=== PATIENT | female | born 1995 | race Caucasian/White ===

== ENCOUNTER → 2020-06-01 13:47 | Outpatient (CLI) | payer OTHER, MEDICAID, SELFPAY ==
--- NOTE | ~2020-06-01 | US_ITS ---
EXAMINATION: US OB <=14 wk fetus w TV DATE: 06/01/2020 14:37 INDICATION: Irregular cycles with suppression of menstruation. TECHNIQUE: Real-time pelvic ultrasound utilizing both a transvaginal and transabdominal probe was pe rformed. The interpreting radiologist was not present for the study. COMPARISON: None. FINDINGS: The uterus measures 11.1 x 6.8 x 9.0 cm. There is an intrauterine gestational sac. A yolk sac and fe nithya pole are identified. The crown rump length measures 3.2 cm, which correlates with an estimated ge stational age of 10 weeks and 1 days. heart motion is identified measuring 172 beats per minute (bpm) by M-mode Doppler. 1.3 x 0.7 x 1.0 cm anechoic subchorionic hematoma along the right side of t he gestational sac. The right ovary measures 4.0 x 2.7 x 3.1 cm. The left ovary are not visualized There is no free fluid in the pelvis. IMPRESSION: 1. Single living fetus with heart rate of 172 bpm. 2. Gestational age by ultrasound of 10 weeks 1 day(s) +/- 6 day(s) with ultrasound estimated date of delivery (ALL) of 12/27/2020. Reviewed, dictated and finalized at location A. IMPRESSION: 1. Single living fetus with heart rate of 172 bpm. 2. Gestational age by ultrasound of 10 weeks 1 day(s) +/- 6 day(s) with ultras ound estimated date of delivery (ALL) of 12/27/2020.
== END ==
PROVIDERS: Visit Provider Obstetrics & Gynecology
DX: Z34.91 Encounter for supervision of normal pregnancy, unspecified, first trimester (principal); Z3A.10 10 weeks gestation of pregnancy
CPT/HCPCS: 76801; 76817

== ENCOUNTER 2020-06-17 12:30 | Emergency (ER) | payer OTHER, MEDICAID, SELFPAY ==
--- NOTE | ~2020-06-17 | US_ITS ---
EXAMINATION: US OB <= 14 weeks fetus DATE: 06/17/2020 14:32 INDICATION: Vaginal bleeding during 12 week of TECHNIQUE: Real-time pelvic ultrasound utilizing both a transvaginal and transabdominal probe was pe rformed. The interpreting radiologist was not present for the study. COMPARISON: None. FINDINGS: The uterus measures 12.4 x 9.9 x 8.6 cm. There is an intrauterine gestational sac. A yolk sac and fe nithya pole are identified. The crown rump length measures 5.8 cm, which is concordant with previously e stimated gestational age of 12 weeks and 1 days. heart motion is identified measuring 165 beats per minute (bpm) by M-mode Doppler. The bilateral ovaries are not visualized. There is no free fluid in the pelvis. IMPRESSION: 1. Single living fetus with heart rate of 165 bpm. 2. [place]-rump length of 5.8 cm which is concordant with previously estimated gestational age by ultra sound of 12 weeks 1 day with ultrasound estimated date of delivery (ALL) of 12/29/2020. Reviewed, dictated and finalized at location B. IMPRESSION: 1. Single living fetus with heart rate of 165 bpm. 2. [place]-rump length of 5.8 cm which is concordant with previously estimated ge stational age by ultrasound of 12 weeks 1 day with ultrasound estimated date of delivery (ALL) of 12/29/2020.
[2020-06-17 12:38] VITALS: BP 141/87; PULSE 86; RESP 20; TEMP 36.8; O2SAT 97
--- NOTE | 2020-06-17 12:44 | ED.FEMALEGU ---
HPI - Female Genitourinary General Chief complaint: Vaginal Bleeding Stated complaint: 12 weeks bleeding Time Seen by Provider: 06/17/20 12:34 Source: patient Mode of arrival: ambulatory Limitations: no limitations History of Present Illness HPI Narrative: This is a 24 year old , about 12 weeks that presents to the ER for vaginal bleeding this morning. Reports she had some cramping last night. Reports she noted some dark red blood this morning. Denies fever, abdominal pain, vomiting or dysuria. Related Data Allergies Allergy/AdvReac Type Severity Reaction Status Date / Time No Known Allergies Allergy Unverified 06/06/18 16:18 Review of Systems Review of Systems: Narrative: CONSTITUTIONAL: Denies fever GASTROINTESTINAL: Denies abdominal pain, nausea, vomiting GENITOURINARY: Denies dysuria All systems reviewed & are unremarkable except as noted in HPI and below PMFSH Surgical History Surgical History (Updated 06/17/20 @ 12:48 by Matilda Gao PA-C) History of tonsillectomy Family History Family History (Updated 01/22/18 @ 10:06 by DOCTOR UNKNOWN) Father Hypertension Family history of malignant neoplasm of urinary bladder Mother Family history of malignant melanoma Family history of malignant neoplasm of breast in first degree relative Social History Social History (Updated 06/17/20 @ 12:47 by Matilda Gao PA-C) Substance use: never Exam Narrative: Exam Narrative: GENERAL: Well-appearing, well-nourished, and in no acute distress. HEAD: Normocephalic, atraumatic. EYES: EOMI. CHEST: Clear to auscultation. No respiratory distress. No wheezes rales or rhonchi HEART: Regular rate and rhythm. No murmur heard. Normal peripheral pulses. ABDOMEN: Soft, nontender, nondistended, normal active bowel sounds. EXTREMITIES: Normal range of motion. No edema. SKIN: Warm, dry, no rash. NEURO: No focal deficits. Alert and oriented x3. PSYCH: Normal mood and affect PELVIC: Small amount of bright red blood in the vaginal vault. Normal appearing cervix Course Consultations Consultation #1: Spoke with Dr. Goodwin about patient and work-up. Patient is to be put on pelvic rest and to follow-up in clinic next week. Date: 06/17/20 Time: 15:28 Vital Signs Vital signs: Vital Signs Temperature 98.3 F 06/17/20 12:38 Pulse Rate 86 06/17/20 12:38 Respiratory Rate 20 06/17/20 12:38 Blood Pressure 141/87 H 06/17/20 12:38 Pulse Oximetry 97 06/17/20 12:38 Temperature 98.3 F 06/17/20 12:38 Pulse Rate 78 06/17/20 12:54 Respiratory Rate 20 06/17/20 12:38 Blood Pressure 112/72 06/17/20 12:54 Pulse Oximetry 97 06/17/20 12:38 MDM - Female Genitourinary MDM Narrative Medical decision making narrative: Patient presents to the emergency department for some cramping and vaginal bleeding, 12 weeks . Her vitals are stable. Hemoglobin is 12.8. Small amount of bright red blood in the vaginal vault on exam. Patient is O+. Ultrasound shows a single living fetus with heart rate of 165. Estimated gestational age 12 weeks and 1 day. No other abnormalities noted. Patient updated on case findings. Spoke with Dr. Goodwin about patient and work-up. Patient is to be put on pelvic rest and to follow-up in clinic next week. Patient is stable and felt appropriate for further outpatient evaluation. She was given warnings to return to the ER Lab Data Attestation: I reviewed the patient's lab results. Result diagrams: 06/17/20 12:49 Labs: Lab Results 06/17/20 06/17/20 06/17/20 Range/Units 12:49 12:49 12:49 WBC 8.6 (4.5-10.0) K/mm3 RBC 4.17 L (4.2-5.4) M/mm3 Hgb 12.8 (12.0-15.0) g/dL Hct 36.4 L (37.0-47.0) % MCV 87.3 (80-100) fl MCH 30.7 (26-34) pg MCHC 35.2 (32-36) g/dl RDW 13.2 (11.5-14.5) % Plt Count 335 (150-375) k/mm3 MPV 10.6 H (7.4-10.4) fl Immature Gran % (Auto) 0.4 (0-0.5) % Neut % (Auto) 68.9 (
[2020-06-17 12:52] VITALS: BP 110/75; PULSE 67
[2020-06-17 12:53] VITALS: BP 109/74; PULSE 79
[2020-06-17 12:54] VITALS: BP 112/72; PULSE 78
--- NOTE | 2020-06-17 12:59 | PC.NURSE ---
patient here with vaginal bleeding. approximately 12 weeks . see triage notes. Alert. no distress. assessments documented. SL inserted. labs drawn. urine collected. patient ready for pelvic exam.
[2020-06-17 13:05] LABS: Basophils Percent Auto 0.5 % (0.2-1.2); Eosinophils Percent Auto 0.5 % (0-4.4); Hematocrit 36.4 % (37.0-47.0); Hemoglobin 12.8 g/dL (12.0-15.0); Immature Granulocyte Absolute 0.03 K/mm3 (0.00-0.031); Immature Granulocyte Percent A 0.4 % (0-0.5); Lymphocytes Absolute Auto 2.13 K/mm3 (0.9-3.2); Lymphocytes Percent Auto 24.9 % (18.3-44.2); Mean Corpuscular HGB Conc 35.2 g/dl (32-36); Mean Corpuscular Hemoglobin 30.7 pg (26-34); Mean Corpuscular Volume 87.3 fl (80-100); Mean Platelet Volume 10.6 fl (7.4-10.4); Monocytes Absolute Auto 0.4 K/mm3 (0.1-0.6); Monocytes Percent Auto 4.8 % (2.6-8.5); Neutrophils Absolute Auto 5.9 K/mm3 (1.3-6.7); Neutrophils Percent Auto 68.9 % (45.5-73.1); Platelet Count Result 335 k/mm3 (150-375); Red Blood Count 4.17 M/mm3 (4.2-5.4); Red Cell Distribution Width 13.2 % (11.5-14.5); White Blood Count 8.6 K/mm3 (4.5-10.0)
--- NOTE | 2020-06-17 16:19 | PC.NURSE ---
this RN to bedside. discharge instructions reviewed with patient. SL removed intact and without difficulty. no redness or swelling at site. patient verbalizes understanding of discharge instructions. denies needs prior to DC. ambulated with steady gait to ED exit.
== END 2020-06-17 16:19 | disposition home or self-care (01) ==
PROVIDERS: Physician Assistant; Emergency Provider Emergency Medicine
DX: O20.9 Hemorrhage in early pregnancy, unspecified (principal); Z3A.12 12 weeks gestation of pregnancy
CPT/HCPCS: 36415; 76801; 84702; 85025; 85461; 99284

== ENCOUNTER 2020-08-13 09:41 | Outpatient (CLI) | payer OTHER, MEDICAID, SELFPAY ==
--- NOTE | ~2020-08-13 | US_ITS ---
EXAMINATION: US OB /maternal detail DATE: 08/13/2020 15:11 INDICATION: Second trimester anatomic survey, prior subchorionic hematoma. TECHNIQUE: Real-time ultrasound of the pelvis was performed. COMPARISON: 06/17/2020 FINDINGS: There is a single living fetus in variable presentation. The placenta is posterior/fundal. hear t rate is 157 beats per minute (bpm). cardiac activity and movement are noted. The amnio tic fluid index is subjectively normal. The following anatomy was identified as normal: 4 chamber heart 3 vessel cord cord insertion kidneys urinary bladder stomach spine diaphragm ventricles cisterna magna cerebellum The following biometric data were obtained: Biparietal diameter (BPD): 4.81 cm; head circumference (HC): 7.1 cm; abdominal circumference (AC): 16 .1 cm; femur length (FL): 3.2 cm. The head circumference to abdominal circumference ratio is greater than two standard deviations below the mean. These measurements are otherwise concordant. Estimated weight is 362 g +/- 54 g, which correlates with the 45th percentile when 12/27/2020 is used as estimated date of delivery. As single measurements, these parameters are each equal to the following estimated gestational ages w ith ranges of +/- 2 standard deviations: BPD: 20 weeks 4 days +/- 1 weeks 5 days. HC: 19 weeks 5 days +/- 1 weeks 3 days. AC: 21 weeks 1 days +/- 2 weeks 0 days. FL: 20 weeks 0 days +/- 1 weeks 6 days. estimated gestational age based solely on measurements from this exam is 20 weeks 3 days +/- 1 weeks 3 days. IMPRESSION: 1. Single living fetus in variable presentation. 2. Estimated weight is 362 g +/- 54 g, which correlates with the 45th percentile when 12/27/2020 is used as estimated date of delivery. 3. Head circumference to abdominal circumference ratio greater than two standard deviations below the mean. Reviewed, dictated and finalized at location A. ICATION SOFTWARE DEVELOPER IMPRESSION: 1. Single living fetus in variable presentation. 2. Estimated weight is 362 g +/- 54 g, which correlates with the 45th per centile when 12/27/2020 is used as estimated date of delivery. 3. Head circumference to abdominal circumference ratio greater than two standar d deviations below the mean.
== END 2020-08-13 09:42 | disposition home or self-care (01) ==
PROVIDERS: Visit Provider Obstetrics & Gynecology
DX: Z36.89 Encounter for other specified antenatal screening (principal); Z3A.00 Weeks of gestation of pregnancy not specified
CPT/HCPCS: 76805

== ENCOUNTER 2020-10-05 16:03 | Outpatient (CLI) | payer OTHER, MEDICAID, SELFPAY ==
--- NOTE | 2020-10-05 | ECG_ITS ---
Measurements Intervals [place] Rate: 73 P: 40 [place]: 180 QRS: 51 QRSD: 97 T: 15 QT: 387 QTc: 427 Interpretive Statements SINUS RHYTHM WITH SINUS ARRHYTHMIA BASELINE ARTIFACT- I, II, III, V4 NORMAL ECG Electronically Signed On 10-05-2020 18:51:54 FEED ADVISER by Cristobal Holder D.O.
== END 2020-10-05 16:04 | disposition home or self-care (01) ==
LOC: ANHCARD 16:05
PROVIDERS: Visit Provider Obstetrics & Gynecology
DX: R00.2 Palpitations (principal)
CPT/HCPCS: 93005

== ENCOUNTER 2020-10-21 07:15 | Outpatient (CLI) | payer MEDICAID, SELFPAY ==
[2020-10-21 08:58] LABS: Anion Gap 11 mmol/L (8-16); Blood Urea Nitrogen 9 mg/dL (7-18); Calcium 8.8 mg/dL (8.5-10.1); Carbon Dioxide 24 mmol/L (21-32); Chloride 100 mmol/L (98-108); Estimated Glomerular Filt Rate > 60; Glucose 84 mg/dL (70-99); Osmolality Calculated 277 mOsm/kg (285-295); Potassium 3.8 mmol/L (3.5-5.1); Sodium 135 mmol/L (136-145); Thyroid Stimulating Hormone 1.17 uIU/mL (0.36-3.74)
== END 2020-10-21 07:16 | disposition home or self-care (01) ==
PROVIDERS: PCP Physician Assistant; Visit Provider Obstetrics & Gynecology
DX: R53.83 Other fatigue (principal)
CPT/HCPCS: 36415; 80048; 84443

== ENCOUNTER 2020-10-25 07:56 | Emergency (ER) | payer MEDICAID, SELFPAY ==
[2020-10-25 08:00] VITALS: BP 120/87; PULSE 82; RESP 20; TEMP 36.2; O2SAT 96
--- NOTE | 2020-10-25 08:39 | PC.NURSE ---
Call placed to [facility] per protocol for consult. Placed on hold and awaiting OB team for connect.
[2020-10-25 08:40] LABS: Add Urine Microscopic? YES; Appearance Urine Clear (Clear); Bilirubin Urine Negative (Negative); Blood Urine Negative (Negative); Color Urine Yellow (Yellow); Glucose Urine UA Negative (Negative); Ketones Urine Trace (Negative); Leukocyte Esterase Ur Trace (Negative); Nitrate Urine Negative (Negative); Protein Urine Trace (Negative); Specific Grav Ur 1.025 (1.010-1.020); Urobilinogen Urine 0.2 mg/dL (0.2-1.0)
--- NOTE | 2020-10-25 08:41 | PC.NURSE ---
ERP speaking c oncl[facility] for consult and info received.
[2020-10-25 08:44] LABS: RBC Urine 0-2 /hpf (0-2)
[2020-10-25 08:45] LABS: Bacteria Urine 4+ /hpf; Mucus Urine Few /lpf; Squamous Epithelial Cell Urine Many /hpf (Few)
--- NOTE | 2020-10-25 08:48 | ECG_ITS ---
Measurements Intervals [place] Rate: 76 P: 49 ME: 175 QRS: 68 QRSD: 109 T: 24 QT: 378 QTc: 426 Interpretive Statements SINUS RHYTHM BORDERLINE R WAVE PROGRESSION, ANTERIOR LEADS BORDERLINE ECG Electronically Signed On 10-25-2020 10:14:54 FRAME SAMPLE AND PATTERN SUPERVISOR by Cristobal Holder D.O.
--- NOTE | 2020-10-25 08:57 | PC.NURSE ---
Report given To KEIRA Dempsey
--- NOTE | 2020-10-25 09:17 | ED.FEMALEGU ---
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 The presyncopal feeling happened while she was sitting down, and it was of brief duration. Severity: mild Vaginal discharge: none Vaginal bleeding: none Exacerbating factors: none Associated symptoms: denies other symptoms (no fever, no chills, no dysuria, no increased frequency or urgency. ) Treatment prior to arrival: none Patient : Yes Related Data Home Medications Medication Instructions Recorded Confirmed PNV no.[id number] acid 1 tablet PO DAILY 10/25/20 10/25/20 [Complete ] Allergies Allergy/AdvReac Type Severity Reaction Status Date / Time No Known Allergies Allergy Unverified 06/06/18 16:18 Review of Systems Review of Systems: ROS unobtainable: Yes unobtainable due to endotracheal tube Constitutional: Constitutional: Reports no additional constitutional complaints Eyes: Eyes: Reports no additional eye complaints ENT: Reports system reviewed and no additional complaints, except as documented Cardiovascular: Cardiovascular: Reports no additional cardiovascular complaints Respiratory: Respiratory: Reports no additional respiratory complaints Gastrointestinal: Gastrointestinal: Reports no additional gastrointestinal complaints Genitourinary: Genitourinary: Reports no additional female genitourinary complaints Comments: Denies vaginal discharge, or anything unusual. Musculoskeletal: Musculoskeletal: Reports no additional musculoskeletal complaints Integumentary/Breasts: Skin/Breast: Reports system reviewed and no additional complaints, except as docu Neurologic: Reports system reviewed and no additional complaints, except as documented Psychiatric: Psychiatric: Reports no additional psychiatric complaints Endocrine: Endocrine: Reports no additional endocrine complaints Hematologic/Lymphatic: Hematologic/Lymphatic: Reports no additional hematologic/lymphatic complaints Allergic/Immunologic: Allergic/Immunologic: Reports no additional allergic/immunologic complaints [facility] Surgical History Surgical History History of tonsillectomy Family History Family History Father Hypertension Family history of malignant neoplasm of urinary bladder Mother Family history of malignant melanoma Family history of malignant neoplasm of breast in first degree relative Social History Social History Substance use: never Exam Const: General: healthy appearing, no acute distress and alert Orientation/consciousness: patient oriented x3 HENMT: Head: normal to inspection Ears: external ears normal and TM's normal bilaterally General nose exam: Normal external nose present Face and sinus: normal facial exam Mouth: Yes Abnormal oral and palatal mucosa present Throat: posterior oropharynx normal Eyes: Conjunctivae: conjunctivae normal Neck: Neck: normal visual inspection Chest: Chest palpation & inspection: normal inspection of the chest Resp: Effort & Inspection: normal respiratory effort Auscultation: clear to auscultation bilaterally Cardio: Rate: regular rate Rhythm: regular rhythm GI: GI Palp: Yes Soft to palpation (nontender) : Other: Pelvic exam was deferred, as she had no symptoms relating to this area. Skin: General skin exam: normal color Neuro: General: patient oriented x3 and moves all extremities Extrem: General: normal to inspection Psych: Mental Status: mental status grossly normal Thought content: Yes Normal thought content present Judgement: Good judgement present (
[2020-10-25 09:30] VITALS: BP 103/70; PULSE 83; RESP 20; O2SAT 97
== END 2020-10-25 09:35 | disposition home or self-care (01) ==
PROVIDERS: Emergency Provider Emergency Medicine; PCP Obstetrics & Gynecology
DX: O23.10 Infections of bladder in pregnancy, unspecified trimester (principal); Z3A.00 Weeks of gestation of pregnancy not specified
CPT/HCPCS: 81001; 87086; 87088; 93005; 99283

== ENCOUNTER 2020-11-03 08:19 | Emergency (ER) | payer MEDICAID, SELFPAY ==
--- NOTE | 2020-11-03 | ECHO_ITS ---
Patient Info Name: Ruthy Bagley Age: 25 years : 1995 Gender: Female Ht: 62 in Wt: 160 lbs BSA: 1.81 m2 HR: 84 bpm BP: 111 / 69 mmHg Technical Quality: Good Exam Date: 11/03/2020 11:03 AM Exam Location: [facility] Pulmonary Exam Room: [place] [address] Patient Status: Emergency Admit Date: 11/03/2020 Staff Ordering Physician: Corey Meier MD Lead Refinery Supervisor: Pamela Curiel RDCS Attending Provider: Corey Meier MD Exam Type: CA echo doppler color flow Study Info Complete two-dimensional, color flow and Doppler transthoracic echocardiogram is performed. Summary 1. Complete two-dimensional, color flow and Doppler transthoracic echocardiogram is performed. 2. Left ventricular chamber dimension is normal. 3. Left ventricular systolic function is normal, estimated at 60-65%. 4. The left ventricular diastolic function is normal. 5. E/e' 5 is not elevated. 6. Left atrial chamber dimension is mildly enlarged. 7. There is trace mitral valve regurgitation. 8. There is trace tricuspid valve regurgitation. 9. No pulmonary hypertension, estimated pulmonary arterial systolic pressure is 25 mmHg. 10. There is trace pulmonic regurgitation. Left Ventricle E/e' 5 is not elevated. Left ventricular chamber dimension is normal. Left ventricular systolic function is normal, estimated at 60-65%. The left ventricular diastolic function is normal. Right Ventricle Right ventricular chamber dimension is normal. Right ventricular systolic function is normal. Left Atria Left atrial chamber dimension is mildly enlarged. Right Atria Right atrial chamber dimension is normal. Aortic Valve The aortic valve is trileaflet. There is no aortic valve stenosis. There is no aortic valve regurgitation. Pulmonic Valve There is trace pulmonic regurgitation. Mitral Valve There is no mitral valve stenosis. There is trace mitral valve regurgitation. Tricuspid Valve There is trace tricuspid valve regurgitation. No pulmonary hypertension, estimated pulmonary arterial systolic pressure is 25 mmHg. Pericardium/Pleural There is no pericardial effusion. Inferior Vena Cava Normal inferior vena cava with >50% collapse upon inspiration consistent with normal right atrial pressure, 5 mmHg. Aorta The aortic root size at the sinus of Valsalva is normal. Left Ventricular Outflow Tract Name Value Normal LVOT 2D LVOT Diameter 2.0 cm LVOT Doppler LVOT Peak Gradient 5 mmHg LVOT Mean Gradient 3 mmHg LVOT VTI 24 cm LVOT VTI/AV VTI Ratio 0.8 LVOT Stroke Volume 75 ml LVOT CO 16.5 l/min LVOT CI 9.2 l/min/m2 Pulmonic Valve Name Value Normal PV Doppler
[2020-11-03 08:28] VITALS: BP 111/69; PULSE 84; RESP 16; TEMP 36.3; O2SAT 99
--- NOTE | 2020-11-03 08:34 | ED.RECABL ---
HPI - Recheck/Abnormal Lab/Rx General Chief Complaint: Recheck/Abnormal Lab/Rx Stated Complaint: low bp, 32 weeks Time Seen by Provider: 11/03/20 08:33 History of Present Illness HPI narrative: 25 year old female at 32 weeks gestation presents to the ED for low blood pressure. She reports that she has had 5 episodes of low blood pressure over the past several weeks. During the episodes she reports that she first feels heaviness in her chest and SOB. She then becomes light headed. Her blood pressure then drops into the 60s or 70s systolic. She was recently seen at [facility]. Nothing acute was found. She was supposed to have an outpatient echo. Today she had another episode. Her symptoms resolved prior to my evaluation. Related Data Home Medications Medication Instructions Recorded Confirmed PNV no.[id number] acid 1 tablet PO DAILY 10/25/20 11/03/20 [Complete ] Allergies Allergy/AdvReac Type Severity Reaction Status Date / Time No Known Allergies Allergy Unverified 11/03/20 08:31 Review of Systems Review of Systems: All systems reviewed & are unremarkable except as noted in HPI and below Constitutional: Constitutional: Denies chills and Denies fever(s) ENT: Reports system reviewed and no additional complaints, except as documented Cardiovascular: Cardiovascular: Denies chest pain Respiratory: Respiratory: Denies dyspnea Gastrointestinal: Gastrointestinal: Denies abdominal pain, Denies diarrhea, Denies nausea and Denies vomiting Genitourinary: Genitourinary: Denies hematuria and Denies dysuria Neurologic: Denies confusion, Reports dizziness, Denies syncope and Denies headache(s) [facility] Surgical History Surgical History History of tonsillectomy Family History Family History Father Hypertension Family history of malignant neoplasm of urinary bladder Mother Family history of malignant melanoma Family history of malignant neoplasm of breast in first degree relative Social History Social History Substance use: never Gender identity (if verbalized by the patient): Female Exam Const: General: healthy appearing, no acute distress and alert Orientation/consciousness: patient oriented x3 HENMT: Head: normal to inspection Neck: Neck: normal visual inspection and no lymphadenopathy Chest: Chest palpation & inspection: no tenderness Resp: Effort & Inspection: normal respiratory effort Auscultation: clear to auscultation bilaterally, no rales, no rhonchi and no wheezes Cardio: Jugular venous distension: no JVD Rate: regular rate Rhythm: regular rhythm Heart sounds: no murmurs GI: GI Palp: Yes Soft to palpation and No Tenderness to palpation present (GI) Other: Gravid Skin: General skin exam: normal color Neuro: General: patient oriented x3 and moves all extremities Speech: normal speech Extrem: General: no edema Psych: Appearance: well kempt Affect: normal affect Course Vital Signs Vital signs: Vital Signs Temperature 36.3 C L 11/03/20 08:28 Pulse Rate 84 11/03/20 08:28 Respiratory Rate 16 11/03/20 08:28 Blood Pressure 111/69 11/03/20 08:28 Pulse Oximetry 99 11/03/20 08:28 Temperature 36.3 C L 11/03/20 08:28 Pulse Rate 80 11/03/20 13:01 Respiratory Rate 20 11/03/20 13:01 Blood Pressure 110/78 11/03/20 13:01 Pulse Oximetry 99 11/03/20 13:01 MDM - Recheck/Abnormal Lab/Rx MDM Narrative Medical decision making narrative: BP stable since arrival. Labs, EKG, ECHo unrevealing. I suggested increasing fluids and salt intake. Her OB will follow-up with her in the next few days. Differential Diagnosis Differential diagnosis: Likely other (Dehydration, anxiety, near syncope, other) Medical Records Attestation: I reviewed the patient's medical records.
--- NOTE | 2020-11-03 08:43 | ECG_ITS ---
Measurements Intervals [place] Rate: 75 P: 48 KS: 174 QRS: 37 QRSD: 93 T: 9 QT: 382 QTc: 429 Interpretive Statements SINUS RHYTHM NORMAL ECG Electronically Signed On 11-03-2020 13:36:35 [employer] by Cristobal Holder D.O.
[2020-11-03 09:00] LABS: Basophils Percent Auto 0.2 % (0.2-1.2); Eosinophils Percent Auto 0.4 % (0-4.4); Hematocrit 32.5 % (37.0-47.0); Hemoglobin 11.3 g/dL (12.0-15.0); Immature Granulocyte Absolute 0.07 K/mm3 (0.00-0.031); Immature Granulocyte Percent A 0.8 % (0-0.5); Lymphocytes Absolute Auto 1.23 K/mm3 (0.9-3.2); Lymphocytes Percent Auto 13.7 % (18.3-44.2); Mean Corpuscular HGB Conc 34.8 g/dl (32-36); Mean Corpuscular Hemoglobin 30.8 pg (26-34); Mean Corpuscular Volume 88.6 fl (80-100); Mean Platelet Volume 11.4 fl (7.4-10.4); Monocytes Absolute Auto 0.6 K/mm3 (0.1-0.6); Monocytes Percent Auto 6.5 % (2.6-8.5); Neutrophils Percent Auto 78.4 % (45.5-73.1); Platelet Count Result 209 k/mm3 (150-375); Red Blood Count 3.67 M/mm3 (4.2-5.4)
[2020-11-03] MEDS: SODIUM CHLORIDE 0.9% IV 1,000 ML 999 ML IV CONT (09:03)
[2020-11-03 09:16] LABS: Anion Gap 4 mmol/L (8-16); Blood Urea Nitrogen 12 mg/dL (7-17); Calcium 8.7 mg/dL (8.4-10.2); Carbon Dioxide 23 mmol/L (22-30); Chloride 107 mmol/L (98-107); Estimated CRCL calculation 162 ml/min; Estimated Glomerular Filt Rate > 60; Glucose 99 mg/dL (65-105); Potassium 3.8 mmol/L (3.4-5.0); Sodium 134 mmol/L (137-145)
[2020-11-03 09:26] LABS: NT Pro B Type Natriuretic Pept 55 PG/ML (5-100)
[2020-11-03 11:26] VITALS: BP 103/69; PULSE 77; RESP 15; O2SAT 97
[2020-11-03 13:01] VITALS: BP 110/78; PULSE 80; RESP 20; O2SAT 99
== END 2020-11-03 13:03 | disposition home or self-care (01) ==
PROVIDERS: Emergency Provider Emergency Medicine; PCP Physician Assistant
DX: O26.893 Other specified pregnancy related conditions, third trimester (principal); R55 Syncope and collapse; Z3A.32 32 weeks gestation of pregnancy
CPT/HCPCS: 36415; 80048; 83880; 85025; 93005; 93306; 96360; 99284; J7030

== ENCOUNTER 2020-11-30 13:41 | Outpatient (RCR) | payer MEDICAID, SELFPAY ==
[2020-11-30 14:13] VITALS: BP 107/57; PULSE 80
[2020-11-30 14:21] VITALS: BP 107/57; PULSE 84
== END 2021-01-13 10:20 | disposition home or self-care (01) ==
LOC: ANHOBPP 13:41
PROVIDERS: PCP Obstetrics & Gynecology; Visit Provider Obstetrics & Gynecology
DX: O36.8130 Decreased fetal movements, third trimester, not applicable or unspecified (principal); Z3A.36 36 weeks gestation of pregnancy
CPT/HCPCS: 59025

== ENCOUNTER 2020-12-07 14:43 | Observation (INO) | payer OTHER, SELFPAY ==
--- NOTE | 2020-12-07 14:43 | OBADM ---
This patient, Ruthy Bagley, admitted to the OB room Labor/Delivery/Recovery 105 for observation. Patient/family oriented to hospital policies and general routines including ID bracelet, bed and alarms, visiting hours, pain management, procedures, bathroom and other care routines, personal items, smoking policy, room service/diet, and visiting hours. Patient/Family are encouraged to report perceived risks to care and to ask questions if they do not understand what they are told or what they should do.
--- NOTE | 2020-12-07 15:22 | PC.NURSE ---
Dr. Goodwin notified of negative ROM plus results, FHT reactive category 1, irregular contractions noted. Patient denies contractions. VSS. Discharge orders given.
[2020-12-07 15:24] VITALS: TEMP 36.3
[2020-12-07 15:48] VITALS: BMI 31.4
--- NOTE | 2020-12-08 16:43 | P.PNOB_ITS ---
OB - Triage/Final Diagnosis Visit Information Comments/Additional reasons for admission: I have assessed the risk for this patient, Ruthy Bagley, and determined that she would benefit from observation care. Evaluation Comments: ROM + negative for rupture of membranes Final Diagnosis (1) Vaginal discharge during : Qualifiers: Trimester: third trimester Qualified Code(s): O26.893 - Other specified related conditions, third trimester; N89.8 - Other specified no ninflammatory disorders of vagina Code(s): O26.899 - Other specified related conditions, unspecified trimester; N89.8 - Other specified noninflammatory disorders of vagina Status: Acute
== END 2020-12-07 15:38 | disposition home or self-care (01) ==
PROVIDERS: Admitting Provider Obstetrics & Gynecology; PCP Obstetrics & Gynecology; Visit Provider Obstetrics & Gynecology
DX: O26.893 Other specified pregnancy related conditions, third trimester (principal); N89.8 Other specified noninflammatory disorders of vagina; Z3A.00 Weeks of gestation of pregnancy not specified
CPT/HCPCS: 84112; G0378; G0379

== ENCOUNTER 2020-12-14 12:04 | Inpatient (IN) | payer OTHER, SELFPAY ==
[2020-12-14] VITALS (12 sets, daily range): BP systolic 103–131; BP diastolic 66–93; PULSE 67–98; RESP 18; TEMP 36.1–36.4; BMI 31.0
[2020-12-14 15:00] LABS: Glucose Point of Care 110 (65-105)
[2020-12-14 15:37] LABS: Basophils Percent Auto 0.2 % (0.2-1.2); Eosinophils Percent Auto 0.1 % (0-4.4); Hematocrit 34.1 % (37.0-47.0); Hemoglobin 11.6 g/dL (12.0-15.0); Immature Granulocyte Absolute 0.03 K/mm3 (0.00-0.031); Immature Granulocyte Percent A 0.3 % (0-0.5); Lymphocytes Absolute Auto 1.63 K/mm3 (0.9-3.2); Lymphocytes Percent Auto 17.6 % (18.3-44.2); Mean Corpuscular Hemoglobin 29.2 pg (26-34); Mean Corpuscular Volume 85.9 fl (80-100); Mean Platelet Volume 11.3 fl (7.4-10.4); Monocytes Absolute Auto 0.6 K/mm3 (0.1-0.6); Monocytes Percent Auto 6.3 % (2.6-8.5); Neutrophils Percent Auto 75.5 % (45.5-73.1); Platelet Count Result 203 k/mm3 (150-375); Red Blood Count 3.97 M/mm3 (4.2-5.4); Red Cell Distribution Width 12.8 % (11.5-14.5); White Blood Count 9.3 K/mm3 (4.5-10.0)
[2020-12-14] MEDS: DINOPROSTONE 10 MG VAG INSERT VAGINAL (15:38)
--- NOTE | 2020-12-14 16:09 | LDADM ---
This patient, Ruthy Bagley, was admitted to Labor/Delivery/Recovery 107 on 12/14/20 at 13:30. Plans for labor, pain management and were discussed with patient. Patient/family oriented to hospital policies and general routines including ID bracelet, bed and alarms, visiting hours, pain management, procedures, bathroom and other care routines, personal items, smoking policy, room service/diet and guest tray routines, infant security routines, and visiting hours. Patient/Family are encouraged to report perceived risks to care and to ask questions if they do not understand what they are told or what they should do. See OBIX for further documentation.
[2020-12-14] MEDS: CALCIUM CARBONATE (TUMS) 500 MG (200 MG ELEMENTAL) PO (16:21)
--- NOTE | 2020-12-14 17:18 | WPDANESEPPF ---
Anes - Initial Pre Proc Eval Procedure: labor epidural Date/Time: 12/14/20 17:18 Surgeon: Brynn Goodwin MD Pre Op Diagnosis: labor pain Pre Op Diagnosis: ELEVATED BP Patient Data Age: 25 Gender: F Height: 1.57 m Weight: 77 kg Last Vital Signs Temp 36.4 C 12/14/20 16:00 Pulse 67 12/14/20 16:30 BP 103/66 12/14/20 16:30 Allergies Allergy/AdvReac Type Severity Reaction Status Date / Time No Known Allergies Allergy Verified 12/12/20 15:59 Home Medications Medication Instructions Recorded Confirmed Type PNV no.[id number] acid 1 tablet PO DAILY 10/25/20 12/14/20 History Laboratory Tests 12/14/20 12/14/20 12/14/20 12:58 15:20 15:20 WBC 9.3 K/mm3 K/mm3 (4.5-10.0) RBC 3.97 M/mm3 L M/mm3 (4.2-5.4) Hgb 11.6 g/dL L g/dL (12.0-15.0) Hct 34.1 % L % (37.0-47.0) MCV 85.9 fl fl (80-100) MCH 29.2 pg pg (26-34) MCHC 34.0 g/dl g/dl (32-36) RDW 12.8 % % (11.5-14.5) Plt Count 203 k/mm3 k/mm3 (150-375) MPV 11.3 fl H fl (7.4-10.4) Immature Gran % (Auto) 0.3 % % (0-0.5) Neut % (Auto) 75.5 % H % (45.5-73.1) Lymph % (Auto) 17.6 % L % (18.3-44.2) [place] % (Auto) 6.3 % % (2.6-8.5) Eos % (Auto) 0.1 % % (0-4.4) Baso % (Auto) 0.2 % % (0.2-1.2) Lymph # (Auto) 1.63 K/mm3 K/mm3 (0.9-3.2) [place] # (Auto) 0.6 K/mm3 K/mm3 (0.1-0.6) Eos # (Auto) 0.0 K/mm3 K/mm3 (0-0.3) Baso # (Auto) 0.0 K/mm3 K/mm3 (0.0-0.1) Abs Immat Gran (auto) 0.03 K/mm3 K/mm3 (0.00-0.031) Absolute Neuts (auto) 7.0 K/mm3 H K/mm3 (1.3-6.7) Absolute Nucleated RBC 0.0 K/mm3 K/mm3 (0.0-0.012) Nucleated RBC % 0.0 % % (0.0-0.2) POC Capillary Glucose 110 mg/dl mg/dl (65-105) RPR Pending Blood Type Antibody Screen 12/14/20 15:20 WBC RBC Hgb Hct MCV MCH MCHC RDW Plt Count MPV Immature Gran % (Auto) Neut % (Auto) Lymph % (Auto) [place] % (Auto) Eos % (Auto) Baso % (Auto) Lymph # (Auto) [place] # (Auto) Eos # (Auto) Baso # (Auto) Abs Immat Gran (auto) Absolute Neuts (auto) Absolute Nucleated RBC Nucleated RBC % POC Capillary Glucose RPR Blood Type O Positive Antibody Screen Negative Patient hx anesthesia problems: none Family hx anesthesia problems: none PMFSH Surgical History Surgical History History of tonsillectomy Family History Family History Father Hypertension Family history of malignant neoplasm of urinary bladder Mother Family history of malignant melanoma Family history of malignant neoplasm of breast in first degree relative Social History Social History Smoking status: Never smoker Second hand tobacco smoke exposure: Yes Substance use: never Gender identity (if verbalized by the patient): Female Sexual Orientation (if Verbalized by the Patient): Straight or Heterosexual Spiritual care concerns: No Anes - Eval Final PreProcedure Day of Procedure 12/14/20 17:18 Patient weight: obese ASA classification: II Anesthesia type and monitoring: regional epidural Informed Consent: The patient's anesthetic plan and its attendant risks and benefits were discussed with the patient/family/POA. Questions were solicited and answers provided to the satisfaction of the patient/family/POA.
--- NOTE | 2020-12-14 18:52 | PM.IMHP ---
H&P: HPI History of Present Illness Date/Time: 12/14/20 18:52 Ruthy is a 25yo @ 38.1wks (ALL 12/27/20) who presented to L&D after having another episode of hypotension during clinicals. She felt very shaky, clammy, light headed and light she was going to faint. No CP, vision changes, fever, chills, SOB. She has been having these episodes more frequently in the third trimester. She has undergone full cardiac workup with normal EKG, echo, TSH and cardiology consult. Her hypotension is felt to be due to (decreased venous return). When placed on NST, she was found to have a late decel with decreased variability, finger stick was normal at 110. The heart rate tracing become more reactive but plan was made for IOL due to decels at term. She reports good movement. She has been having some cramping on and off. No vaginal bleeding or leakage of fluid. She has had [facility] care with [facility]. Her is complicated by: - Hypotension s/p normal cards w/u and cardiology visits - CMV non-immune Chief Complaint: induction of labor Review of Systems Review of Systems: All systems reviewed & are unremarkable except as noted in HPI and below (HPI) [facility] Surgical History Surgical History History of tonsillectomy Family History Family History Father Hypertension Family history of malignant neoplasm of urinary bladder Mother Family history of malignant melanoma Family history of malignant neoplasm of breast in first degree relative Social History Social History Smoking status: Never smoker Second hand tobacco smoke exposure: Yes Substance use: never Gender identity (if verbalized by the patient): Female Sexual Orientation (if Verbalized by the Patient): Straight or Heterosexual Spiritual care concerns: No Meds Home Medications and Allergies Home Medications Medication Instructions Recorded Confirmed Type PNV no.96-[id number] acid 1 tablet PO DAILY 10/25/20 12/14/20 History Allergies Allergy/AdvReac Type Severity Reaction Status Date / Time No Known Allergies Allergy Verified 12/12/20 15:59 Vital Signs Vital Signs - 24 hr 12/14/20 12:30 12/14/20 12:45 12/14/20 13:00 Temperature 36.4 C Pulse Rate 88 94 98 Blood Pressure 115/76 116/71 115/75 12/14/20 13:15 12/14/20 13:30 12/14/20 13:45 Temperature Pulse Rate 89 81 90 Blood Pressure 114/79 131/93 H 123/84 12/14/20 15:56 12/14/20 16:00 12/14/20 16:30 Temperature 36.4 C Pulse Rate 74 87 67 Blood Pressure 112/81 109/79 103/66 Exam Const: General: cooperative, healthy appearing, comfortable and no acute distress Resp: Effort & Inspection: normal respiratory effort and able to speak in complete sentences Cardio: Rate: regular rate GI: GI Palp: No abdominal tenderness and Yes Soft to palpation : Other: FHT's: 145/min to mod/ + accels/ 1 late decels, now no decels - cat 2 TOCO; irritability Cervix: 0.5/thick/-2, med, mid Membranes: intact Presentation: cephalic Skin: General skin exam: normal color Neuro: General: patient oriented x3 Psych: Appearance: grossly normal Affect: normal affect Attitude: cooperative H&P: Results Labs Labs: Short CBC 12/14/20 Range/Units 15:20 WBC 9.3 (4.5-10.0) K/mm3 Hgb 11.6 L (12.0-15.0) g/dL Hct 34.1 L (37.0-47.0) % Plt Count 203 (150-375) k/mm3 Assessment and Plan Assessment and plan (1) Late deceleration of heart rate: Code(s): O36.8390 - Maternal care for abnormalities of the heart rate or rhythm, unspecified trimester, not applicable or unspecified Status: Acute (2) : Qualifiers: Weeks of gestation: 38 weeks Qualified Code(s): Z3A.38 - 38 weeks gestation of Code(s): Z34
--- NOTE | 2020-12-14 19:04 | WPDHPUPDATE1 ---
History and Physical Update Update Date/Time: 12/14/20 19:04 History and Physical has been reviewed, including an updated exam of the patient. There are NO changes in the patient's condition. Risks, benefits, and alternatives have been discussed and questions answered. Patient agrees to proceed with procedure.
[2020-12-14] MEDS: ZOLPIDEM TARTRATE (*CRX) 5 MG TABLET PO (21:57)
[2020-12-15] VITALS (255 sets, daily range): BP systolic 71–123; BP diastolic 42–88; PULSE 25–148; RESP 18–22; TEMP 36.2–36.9; O2SAT 81–100
[2020-12-15] MEDS: CALCIUM CARBONATE (TUMS) 500 MG (200 MG ELEMENTAL) PO (02:22)
[2020-12-15] MEDS: miSOPROStol 25 MCG TABLET VAGINAL (05:04)
--- NOTE | 2020-12-15 07:22 | PM.OBPNLAB ---
Pain Control Date/time seen: 12/15/20 07:22 Pain control: tolerating well Comments: feeling cramping/contractions Pelvic Exam Dilation (cm): 1 (.5) Effacement (%): 50 station: -2 Amniotic membrane status: Intact Comments: exam @ 0345 when cervidil was removed Contractions Monitor mode: External Contraction frequency: 3 Contraction pattern: Regular Status status: Category l Comments: 130's/mod angie/ + accels/ no decels - reassuring Assessment and Plan Assessment: induction ongoing Comments: - cytotec 25mcg vaginally was placed @ 0500 - pt now jaquelin regularly - plan for recheck @ 0900, will then transition to pitocin - plan for AROM when 2-3cm dilated - continuous monitoring; reassuring - anesthesia consult PRN pain
[2020-12-15 08:51] LABS: Rapid Plasma Reagin Non-Reactive (NonReactive)
[2020-12-15] MEDS: LACTATED RINGERS 1,000 ML 125 ML IV CONT ×2 (09:09→09:50)
[2020-12-15] MEDS: LACTATED RINGERS 1,000 ML 999 ML IV CONT ×2 (09:55→14:39)
[2020-12-15] MEDS: OXYTOCIN 30 UNITS/NS 500 ML 30 UNITS/500 ML BAG IV CONT ×2 (11:46→12:28)
--- NOTE | 2020-12-15 11:54 | PM.OBPNLAB ---
Pain Control Date/time seen: 12/15/20 11:54 Pain control: tolerating well and epidural Pelvic Exam Dilation (cm): 4 Effacement (%): 50 station: -2 Amniotic membrane status: Ruptured (clear, AROM @ 1150) Contractions Monitor mode: External Contraction frequency: 3 Contraction pattern: Regular Status status: Category l Assessment and Plan Pitocin rate (mU/min): 2 Assessment: induction ongoing Plan: continuous present management
[2020-12-15] MEDS: FAMOTIDINE 20 MG/2 ML VIAL IV PUSH (16:36)
[2020-12-15] MEDS: ONDANSETRON INJ 4 MG/2 ML VIAL IV PUSH (20:38)
--- NOTE | 2020-12-15 21:58 | PM.OBPRVD ---
OB - Delivery Note Procedure Delivery date: 12/15/20 events: Labor Induction Induction method: per misoprostol protocol and per cervidil protocol Delivery augmentation: rupture of membranes and pitocin Delivery monitor: external FHT and internal uterine Route of delivery: Laceration Description: Perineal - 1st Degree Delivery repair: vicryl Quantitative Blood Loss (ml): 150 Anesthesia type: Epidural Disposition: floor Friend Baby Date of : 12/15/20 Time of : 21:39 Weeks of gestation at delivery: 38 gender: Female Weight (pounds): 5 Weight (ounces): 15 presentation: vertex position: Left Occiput Anterior Placenta delivery description: Expressed cord vessel description: 3 Vessels score one minute: 9 score five minutes: 9 Narrative: Patient rapidly progressed from 6 to complete with desire to push. She pushed for approximately 35 minutes with good maternal effort. She delivered the head over intact perineum. She delivered the shoulders and body without complications. The was immediately placed skin to skin and had spontaneous cry. Delayed cord clamping was performed. The umbilical cord was then clamped and cut. A segment of the cord was collected for cord gases. The remaining cord blood was collected for typing. With Pitocin running and gentle downward traction on the umbilical cord, the placenta delivered without complications. Mild lower uterine segment atony was noted, but resolved with bimanual massage and minimal bleeding was then noted. The cervix, vagina, perineum were examined and a first-degree perineal laceration was noted. The perineal laceration was repaired in the normal fashion using 2-0 Vicryl. Good hemostasis was noted. Good uterine tone was noted. Sponge, lap, instrument, needle counts were correct at the end of the procedure. Mom and baby were left bonding in the birthing suite in a stable condition.
[2020-12-15] MEDS: OXYTOCIN 30 UNITS/NS 500 ML 30 UNITS/500 ML BAG 125 UNITS IV CONT (22:19)
[2020-12-16] VITALS (8 sets, daily range): BP systolic 100–118; BP diastolic 55–72; PULSE 68–97; RESP 14–18; TEMP 36.6–37.1; O2SAT 99
[2020-12-16] MEDS: WITCH HAZEL 40 PADS 1 PAD TOPICAL (00:24)
[2020-12-16] MEDS: BENZOCAINE 20% AER SPR (*SP) 56 GM CAN 1 SPRAY TOPICAL (00:24)
[2020-12-16] MEDS: IBUPROFEN 600 MG TABLET PO ×3 (00:25→23:03)
--- NOTE | 2020-12-16 00:57 | OBPPTRN ---
Patient transferred to post room #278 via wheelchair with in crib. Support person present. Oriented to unit, room, information board, rooming in, admission packet and security measures. Patient verbalizes understanding.
[2020-12-16] MEDS: ACETAMINOPHEN 325 MG TABLET 650 MG PO ×2 (02:15→12:41)
[2020-12-16 03:39] LABS: Hematocrit 33.2 % (37.0-47.0); Hemoglobin 11.4 g/dL (12.0-15.0)
[2020-12-16] MEDS: MULTIVIT/MIN/PREN/FOL AC/IRON TABLET 1 TAB PO (09:08)
[2020-12-16] MEDS: DOCUSATE SODIUM 100 MG CAPSULE PO ×2 (09:08→16:18)
--- NOTE | 2020-12-16 10:30 | PM.OBPNVD ---
OB - PN: Subj Subjective Date/time seen: 12/16/20 10:30 PPD#1 Ruthy reports doing well today. She reports significant tailbone pain. She reports her bleeding is light. She denies symptoms of anemia. She has tolerated regular diet. she is breast and bottle feeding. She has ambulated in her room; already showered. She has voided and passed gas. no CP, SOB, fever, chills, N/V, CARMICHAEL, or vision changes. OB - PN: Obj Data Labs CBC & Chem 7: 12/16/20 03:33 Labs: Laboratory Results - last 24 hr 12/16/20 03:33 Hgb 11.4 L Hct 33.2 L OB - PN A/P Assessment and Plan (1) Normal vaginal delivery: Code(s): O80 - Encounter for full-term uncomplicated delivery Status: Acute Plan day: 1 Plan: routine care and discharge home (tomorrow) Comments: f/u in clinic in 4 wks Pelvic rest; take meds as prescribed ER return precautions discussed: fever, bleeding, pain/n/v, signs of HTN Time Spent With Patient Time: Total time spent is greater than 50% in coordination of care (as documented) at patient's floor/unit and/or counseling patient: Review of Systems Review of Systems: All systems reviewed & are unremarkable except as noted in HPI and below (HPI) Exam Const: General: cooperative, healthy appearing, comfortable and no acute distress Resp: Effort & Inspection: normal respiratory effort and able to speak in complete sentences Auscultation: clear to auscultation bilaterally Cardio: Rate: regular rate GI: Inspection: non-distended GI Palp: No abdominal tenderness and Yes Soft to palpation Auscultation: normal bowel sounds : Other: fundus firm below umbilicus Skin: General skin exam: normal color Neuro: General: patient oriented x3 Extrem: General: normal to inspection Psych: Appearance: grossly normal Affect: normal affect Attitude: cooperative
--- NOTE | 2020-12-16 13:00 | WPDANLDPN2 ---
Anes-Prog Note L&D Date/Time: 12/16/20 13:00 Comfortable throughout: labor and delivery Neuraxial method: epidural Epidural/Spinal procedure site: clean & non-tender Neuro status: Neuro function grossly intact. Cardiovascular status: normal Respiratory status: normal Airway patency: baseline Mental status: baseline Post-Op hydration status: normal Vital Signs: Last Vital Signs Temp 37.1 C 12/16/20 07:45 Pulse 68 12/16/20 09:00 Resp 18 12/16/20 09:00 BP 101/57 L 12/16/20 07:45 Pulse Ox 99 12/16/20 09:00 Pain score (VAS): 0 I/O: Intake & Output 12/15/20 12/16/20 12/16/20 23:59 07:59 15:59 Output Total 150 80 Balance -150 -80 Post-procedural complaints: none Patient feedback: Patient satisfied with anesthetic care.
[2020-12-16] MEDS: HYDROcodone/acetaminophen (*CRX) 5-325 MG TABLET 1 TAB PO ×2 (16:18→23:03)
[2020-12-17 09:00] VITALS: BP 106/62; PULSE 57; RESP 16; TEMP 36.4; O2SAT 99
[2020-12-17] MEDS: IBUPROFEN 600 MG TABLET PO (09:24)
[2020-12-17] MEDS: HYDROcodone/acetaminophen (*CRX) 5-325 MG TABLET 1 TAB PO (09:24)
[2020-12-17 13:20] VITALS: BP 109/61; PULSE 83; RESP 16
--- NOTE | 2020-12-17 13:50 | PC.NURSE ---
Patient discharged home to awaiting vehicle. Discharge instructions provided and all questions answered.
--- NOTE | 2020-12-28 07:24 | PM.OBDSVD ---
DS: Admitting Diagnosis Admitting Diagnosis Admitting Diagnosis: decel DS: Discharge Diagnosis Discharge Diagnosis (1) Normal vaginal delivery: Code(s): O80 - Encounter for full-term uncomplicated delivery Status: Acute (2) Late deceleration of heart rate: Code(s): O36.8390 - Maternal care for abnormalities of the heart rate or rhythm, unspecified trimester, not applicable or unspecified Status: Acute OB - DS: Summary OB Procedures : NST and Ultrasound OB Procedures Intrapartum: Spontaneous Vag Delivery OB Procedures: : None Peripartum Data Infant Delivery Method: Natural Vaginal Laceration Description: Perineal - 1st Degree complications: none 1: Gender: Female Disposition of : home Status at Discharge Functional status at discharge: independent ambulation Overall status at discharge: patient is back to baseline Time Spent with Patient Time attestation: Total time spent providing and/or coordinating discharge services: Time spent: Less than 30 minutes Exam Const: General: cooperative, healthy appearing, comfortable and no acute distress Resp: Effort & Inspection: normal respiratory effort and able to speak in complete sentences Auscultation: clear to auscultation bilaterally Cardio: Rate: regular rate GI: Inspection: normal to inspection and non-distended GI Palp: No abdominal tenderness and Yes Soft to palpation Auscultation: normal bowel sounds : Other: fundus firm below the umbilicus Skin: General skin exam: normal color Neuro: General: patient oriented x3 Extrem: General: normal to inspection Psych: Appearance: grossly normal Affect: normal affect Attitude: cooperative Discharge Plan Discharge Attending physician on discharge: Brynn Goodwin Consulting providers: Joseph Elmore Discharging Clinician: Brynn Goodwin Anticipated Discharge Date/Time: 12/17/20 11:00 Patient Disposition: Home, Self-Care Activity: pelvic rest Diet: as tolerated and regular Discharge Instructions: Education: Mom and Baby Guide Given to: Mother Follow-Up: Call your delivering provider's office for an appointment to be seen in: 6 Weeks Mom and baby should come to the [facility] for the follow-up appointment. Appointment Date/Time: December 20, 2020 at 11:00 am What to expect at your follow-up visit: Blood Pressure Check Call [phone] if you are unable to keep your appointment time. BREAST CARE: * Wear a snug supportive bra. * For engorgement discomfort: Breast Feeding: * Apply warm moist washcloths * Express milk as needed to relieve engorgement * Wear loose clothing Bottle Feeding: * May apply ice packs * For sore nipples: * Identify correct latch-on * Apply warm moist washcloths before and after nursing * Air dry nipples after nursing * May apply Lansinoh cream to nipples ABDOMINAL INCISION: (if applicable) * Allow incision to air dry * Do NOT use lotions for powders on your incision * When showering, allow soap and water to run over the incision, but do not wash incision EPISIOTOMY/PERINEAL CARE: * Until bleeding stops, use your sariah bottle after urinating * Change your pad frequently throughout the day * You may take sitz baths several times a day (fill your bathtub with warm water and soak for 20 minutes.) Do NOT bathe in the water * No tub baths until seen by your physician - You may shower ACTIVITY: * Rest as much as possible. * Do not exercise or lift anything heavier than your baby (such as laundry or other children.) * Avoid stairs or driving as much as possible. * Do not put anything into the vagina. No douching, tampons, or sexual activity until seen by physician. NOTIFY PHYSICIAN IF YOU HAVE ANY QUESTIONS OR IF ANY OF THE FOLLOWING SYMPT
== END 2020-12-17 13:44 | disposition home or self-care (01) | DRG 560 ==
LOC: ANHOBOP 12:10 → ANHOBPP 12:49 → ANHLDR 14:02 → ANHOB2 12-16 01:05
PROVIDERS: Admitting Provider Obstetrics & Gynecology; PCP Obstetrics & Gynecology; Visit Provider Obstetrics & Gynecology
DX: O36.8330 Maternal care for abnormalities of the fetal heart rate or rhythm, third trimester, not applicable or unspecified (principal); Z37.0 Single live birth; Z3A.38 38 weeks gestation of pregnancy; O70.0 First degree perineal laceration during delivery; O99.214 Obesity complicating childbirth; E66.9 Obesity, unspecified
CPT/HCPCS: 36415; 82948; 85014; 85018; 85025; 86592; 86850; 86900; 86901; A9270; J2405; J2590; J2795; J7120

== ENCOUNTER 2021-11-08 15:00 | Outpatient (CLI) | payer OTHER, SELFPAY ==
--- NOTE | ~2021-11-08 | MR_ITS ---
EXAMINATION: MR knee LT wo con DATE: 11/08/2021 15:36 INDICATION: Chronic left knee pain TECHNIQUE: Magnetic resonance imaging (MRI) of the left knee was performed without intravenous contra st. Sequences included coronal PD-weighted FSE, coronal PD-weighted FS FSE, sagittal T2-weighted FSE , sagittal PD-weighted FS FSE and axial PD weighted fat saturated FSE. COMPARISON: None. FINDINGS: Medial compartment: Medial meniscus is normal. Articular cartilage is normal. Lateral compartment: Lateral meniscus is normal. Articular cartilage is normal. Patellofemoral compartment: Articular cartilage is normal. Ligaments and tendons: Anterior and posterior cruciate ligaments are normal. The medial collateral ligament and fibular kartik ateral ligament complex are normal. The extensor mechanism is normal. The visualized medial and later al hamstring tendons as well as the iliotibial band are normal. Fluid: Physiologic amount of fluid in the joint space. No loose osteochondral bodies identified. Osseous/other: Normal marrow signal. No fracture or abnormal marrow replacing process. Mild subcutaneous varicositie s along the lateral aspect of the left knee and distal thigh. IMPRESSION: 1. Mild lateral sided subcutaneous varicosities. Otherwise normal left knee MRI with normal cartilage , menisci and stabilizing ligaments. Reviewed, dictated and finalized at location A. NG CRAFTSMAN IMPRESSION: 1. Mild lateral sided subcutaneous varicosities. Otherwise normal left knee MRI with normal cartilage, menisci and stabilizing ligaments.
== END 2021-11-08 15:01 | disposition home or self-care (01) ==
LOC: ANHIMG 15:05
PROVIDERS: PCP Family Medicine; Visit Provider Family Medicine
DX: M25.562 Pain in left knee (principal)
CPT/HCPCS: 73721

== ENCOUNTER 2022-06-08 14:50 | Outpatient (CLI) | payer OTHER, SELFPAY ==
[2022-06-08 15:08] LABS: Basophils Percent Auto 0.5 % (0.2-1.2); Eosinophils Absolute Auto 0.1 K/mm3 (0-0.3); Eosinophils Percent Auto 0.7 % (0-4.4); Hematocrit 41.6 % (37.0-47.0); Hemoglobin 13.9 g/dL (12.0-15.0); Immature Granulocyte Absolute 0.02 K/mm3 (0.00-0.031); Immature Granulocyte Percent A 0.3 % (0-0.5); Lymphocytes Absolute Auto 2.22 K/mm3 (0.9-3.2); Lymphocytes Percent Auto 29.2 % (18.3-44.2); Mean Corpuscular HGB Conc 33.4 g/dl (32-36); Mean Corpuscular Hemoglobin 29.3 pg (26-34); Mean Corpuscular Volume 87.8 fl (80-100); Mean Platelet Volume 9.9 fl (7.4-10.4); Monocytes Absolute Auto 0.4 K/mm3 (0.1-0.6); Monocytes Percent Auto 4.7 % (2.6-8.5); Neutrophils Absolute Auto 4.9 K/mm3 (1.3-6.7); Neutrophils Percent Auto 64.6 % (45.5-73.1); Platelet Count Result 357 k/mm3 (150-375); Red Blood Count 4.74 M/mm3 (4.2-5.4); Red Cell Distribution Width 13.2 % (11.5-14.5); White Blood Count 7.6 K/mm3 (4.5-10.0)
[2022-06-08 15:47] LABS: Beta HCG Quantitative < 2.39 mIU/ML
[2022-06-11 11:44] LABS: DHEA-Sulfate 350 mcg/dL (18-391)
[2022-06-12 12:21] LABS: Testosterone Free 3.3 pg/mL (0.1-6.4); Testosterone Total 40 ng/dL (2-45)
[2022-06-12 15:20] LABS: FSH 7.5 mIU/mL (***); Progesterone 0.8 ng/mL (***); Prolactin 8.4 ng/mL (***)
[2022-06-14 22:23] LABS: Estradiol, Ultrasensitive 40 pg/mL
== END 2022-06-08 14:51 | disposition home or self-care (01) ==
LOC: ANHLAB 14:51
PROVIDERS: PCP Family Medicine; Visit Provider Obstetrics & Gynecology
DX: N92.6 Irregular menstruation, unspecified (principal)
CPT/HCPCS: 36415; 82627; 82670; 83001; 83498; 84144; 84146; 84402; 84403; 84702; 85025

== ENCOUNTER 2022-09-09 09:28 | Emergency (ER) | payer OTHER, SELFPAY ==
[2022-09-09 09:41] VITALS: BP 114/74; PULSE 96; RESP 16; TEMP 38; O2SAT 99
--- NOTE | 2022-09-09 10:18 | ED.GENADULT ---
HPI - General Adult General Chief complaint: Upper Respiratory Infection Stated complaint: cp/weakness/chills Source: patient Mode of arrival: ambulatory Limitations: no limitations History of Present Illness HPI narrative: patient presents for evaluation of sick symptoms. Symptom onset this morning, upon waking for the day. She reports fever, chills, fatigue, generalized body aches, nausea and her primary concern is her sore throat. No recent sick contacts to her knowledge. Denies significant cough, shortness of breath, vomiting or diarrhea. No personal history of COVID. She attempted to go to work this morning but felt unwell, so left to come here. Related Data Allergies Allergy/AdvReac Type Severity Reaction Status Date / Time No Known Allergies Allergy Verified 09/09/22 09:49 Review of Systems Review of Systems: CONSTITUTIONAL: Reports fever, fatigue and chills. EYES: Denies visual changes, redness, or discharge. ENT: reports sore throat.Denies rhinorrhea, congestion, or otalgia. CARDIOVASCULAR: Denies chest pain, palpitations, or edema. RESPIRATORY: Denies cough or dyspnea. GASTROINTESTINAL: Reports nausea.Denies abdominal pain, vomiting, or diarrhea. GENITOURINARY: Denies dysuria or hematuria. SKIN: Denies rash or itching. MUSCULOSKELETAL: Reports generalized body ache NEUROLOGIC: Denies headache, numbness, dizziness, or weakness. PSYCHIATRIC: Denies anxiety or depression. [facility] Past Medical History Medical History Encounter for insertion of mirena IUD 2010 Encounter for IUD removal 2012 Surgical History Surgical History History of tonsillectomy Family History Family History Father Hypertension Family history of malignant neoplasm of urinary bladder Mother Family history of malignant melanoma Family history of malignant neoplasm of breast in first degree relative Social History Social History Smoking status: Never smoker Second hand tobacco smoke exposure: Yes Alcohol intake: current Substance use: never Substance use type: does not use Gender identity (if verbalized by the patient): Female Sexual Orientation (if Verbalized by the Patient): Straight or Heterosexual Spiritual care concerns: No Exam Narrative: GENERAL: Well-appearing, well-nourished, and in no acute distress. HEAD: Normocephalic, atraumatic. EYES: PERRLA and EOMI. ENT: Nares clear, no rhinorrhea or epistaxis. Mucous membranes moist. Tonsils are surgically absent. There is posterior pharyngeal erythema without exudate. Uvula is midline. Bilateral TMs pearly hernandez nonbulging NECK: Supple. No adenopathy or masses. No carotid bruits or JVD CHEST: Clear to auscultation. No respiratory distress. No wheezes rales or rhonchi HEART: Regular rate and rhythm. No murmur heard. Normal peripheral pulses. ABDOMEN: Soft, nontender, nondistended, normal active bowel sounds. EXTREMITIES: Normal range of motion. No edema. SKIN: Warm, dry, no rash. NEURO: No focal deficits. Alert and oriented x3. PSYCH: Normal mood and affect. Course Course Emergency Course: This is a 26-year-old female who presented for evaluation of sore throat with symptom onset today. COVID and influenza testing here were negative. We do not have access to rapid strep testing sore throat culture was sent. Will treat empirically with amoxicillin. Follow up with primary provider. Go to the ER for difficulty breathing or swallowing. Patient in agreement with plan of care. Level of Care: Express Care Visit Vital Signs Vital signs: Vital Signs Temperature 38.0 C H 09/09/22 09:41 Pulse Rate 96 09/09/22 09:41 Respiratory Rate 16 09/09/22 09:41 Blood Pressure 114/74 09/09/22 09:41 Pulse Oximetr
== END 2022-09-09 10:31 | disposition home or self-care (01) ==
PROVIDERS: Emergency Provider Nurse Practitioner
DX: J02.9 Acute pharyngitis, unspecified (principal); Z20.822 Contact with and (suspected) exposure to COVID-19
CPT/HCPCS: 87081; 87147; 87426; 87804; 99213; C9803; G0463

== ENCOUNTER 2023-05-31 07:03 | Outpatient (CLI) | payer OTHER, SELFPAY ==
[2023-05-31 07:35] LABS: Basophils Absolute Auto 0.1 K/mm3 (0.0-0.1); Eosinophils Absolute Auto 0.1 K/mm3 (0-0.3); Eosinophils Percent Auto 1.8 % (0-4.4); Hematocrit 39.5 % (37.0-47.0); Hemoglobin 13.1 g/dL (12.0-15.0); Immature Granulocyte Absolute 0.01 K/mm3 (0.00-0.031); Immature Granulocyte Percent A 0.2 % (0-0.5); Lymphocytes Absolute Auto 1.86 K/mm3 (0.9-3.2); Lymphocytes Percent Auto 37.9 % (18.3-44.2); Mean Corpuscular HGB Conc 33.2 g/dl (32-36); Mean Corpuscular Hemoglobin 29.9 pg (26-34); Mean Corpuscular Volume 90.2 fl (80-100); Mean Platelet Volume 10.1 fl (7.4-10.4); Monocytes Absolute Auto 0.4 K/mm3 (0.1-0.6); Monocytes Percent Auto 7.5 % (2.6-8.5); Neutrophils Absolute Auto 2.5 K/mm3 (1.3-6.7); Neutrophils Percent Auto 51.6 % (45.5-73.1); Platelet Count Result 341 k/mm3 (150-375); Red Blood Count 4.38 M/mm3 (4.2-5.4); Red Cell Distribution Width 13.2 % (11.5-14.5); White Blood Count 4.9 K/mm3 (4.5-10.0)
[2023-05-31 07:41] LABS: Alanine Aminotransferase 19 U/L (6-35); Albumin Level 4.5 g/dL (3.5-5.1); Alkaline Phosphatase 49 U/L (38-126); Anion Gap 6 mmol/L (8-16); Aspartate Amino Transferase 21 U/L (14-36); Bilirubin,Total 0.7 mg/dL (0.2-1.3); Blood Urea Nitrogen 11 mg/dL (7-17); Calcium 9.2 mg/dL (8.4-10.2); Carbon Dioxide 28 mmol/L (22-30); Chloride 104 mmol/L (98-107); Cholesterol 166 mg/dL (0-200); Estimated Glomerular Filt Rate > 60; Glucose 99 mg/dL (65-110); HDL Direct 77 mg/dL; Potassium 3.8 mmol/L (3.4-5.0); Sodium 138 mmol/L (137-145); Triglycerides < 30 mg/dL (<150)
[2023-05-31 07:53] LABS: LDL Cholesterol Direct 67 mg/dL
== END 2023-05-31 07:04 | disposition home or self-care (01) ==
LOC: ANHLAB 07:04
PROVIDERS: PCP Family Medicine; Visit Provider Family Medicine
DX: Z00.00 Encounter for general adult medical examination without abnormal findings (principal)
CPT/HCPCS: 36415; 80053; 80061; 85025

== ENCOUNTER 2023-07-18 09:04 | Outpatient (CLI) | payer OTHER, SELFPAY ==
--- NOTE | ~2023-07-18 | US_ITS ---
EXAMINATION: US pelvic complete w TV DATE: 07/18/2023 15:53 INDICATION: Left pelvic and perineal pain. Abnormal uterine bleeding. TECHNIQUE: Multiple transabdominal and endovaginal sonographic images of the pelvis were obtained. COMPARISON: None FINDINGS: The uterus measures 7.3 x 3.6 x 5.1 cm. The endometrial complex measures 9 mm in thickness. A few nicole bcentimeter anechoic nabothian cysts at the cervix. The right ovary measures 2.9 x 1.9 x 2.2 cm. With multiple subcentimeter anechoic follicles. The left ovary measures 6.7 x 5.4 x 6.7 cm. There is a 6. 7 x 6.2 x 4.9 cm anechoic left ovarian cyst. This contains a 9 x 6 x 5 mm nodular echogenic focus reed ng the wall of the cyst which is without internal vascular flow on color Doppler. There is normal vas cular flow in the ovaries. There is no free fluid in the pelvis. IMPRESSION: 1. Indeterminate 6.7 cm cystic left ovarian lesion with subcentimeter peripheral nodular echogenic re gion which is without evident internal vascular flow on color Doppler. This could represent internal debris or clot in the setting of a complex cyst although differential includes neoplasm. Recommend fu rther evaluation either with pre and postcontrast MRI or 8-12 week follow-up ultrasound. Reviewed, dictated and finalized at location A. GER CATEGORY IMPRESSION: 1. Indeterminate 6.7 cm cystic left ovarian lesion with subcentimeter periphera l nodular echogenic region which is without evident internal vascular flow on c olor Doppler. This could represent internal debris or clot in the setting of a complex cyst although differential includes neoplasm. Recommend further evaluat ion either with pre and postcontrast MRI or 8-12 week follow-up ultrasound.
== END 2023-07-18 09:05 | disposition home or self-care (01) ==
LOC: ANHIMG 09:06
PROVIDERS: PCP Family Medicine; Visit Provider Obstetrics & Gynecology
DX: R10.2 Pelvic and perineal pain (principal); N83.8 Other noninflammatory disorders of ovary, fallopian tube and broad ligament
CPT/HCPCS: 76830; 76856

== ENCOUNTER 2023-07-31 10:22 | Outpatient (CLI) | payer OTHER, SELFPAY ==
[2023-07-31 11:20] LABS: Influenza A QL RT-PCR Negative (Negative); Influenza B QL RT-PCR Negative (Negative); SARS-CoV-2 RNA PCR Negative (Negative)
[2023-07-31 13:15] LABS: Strep Group A RT-PCR DETECTED (Negative)
== END 2023-07-31 10:23 | disposition home or self-care (01) ==
LOC: ANHLAB 10:23
PROVIDERS: PCP Family Medicine; Visit Provider Physician Assistant
DX: R50.9 Fever, unspecified (principal); J02.9 Acute pharyngitis, unspecified; Z20.822 Contact with and (suspected) exposure to COVID-19
CPT/HCPCS: 87636; 87651; 87880

== ENCOUNTER 2024-12-14 14:12 | Outpatient (CLI) | payer OTHER, SELFPAY ==
--- NOTE | ~2024-12-14 | US_ITS ---
EXAMINATION: US OB <=14 wk fetus w TV DATE: 12/14/2024 17:04 CDT INDICATION: Dating COMPARISON: 06/03/2024 TECHNIQUE: Real-time transabdominal obstetric ultrasound. FINDINGS: 3 para 1 Last menstrual period is given as 10/16/2024 Estimated date of delivery by last period is 07/23/2025 The uterus measures 10.8 x 6.7 x 6.3 cm. A gestational sac is identified within the uterus. A small subchorionic hemorrhage is identified measuring 12.6 x 31 x 11 mm for which short-term ultras ound is recommended. A pole is identified, with a crown-rump length that measures 1.56 cm, corresponding to an appro ximate gestational age of 8 weeks and 0 days. cardiac activity is identified at a rate of 176 bpm. The right ovary measures 3.2 x 4.0 x 2.6 cm. The left ovary measures 3.0 x 2.5 x 2.1 cm. Estimated date of delivery by ultrasound is 07/26/2025 IMPRESSION: Single intrauterine gestation with an approximate gestational age of 8 weeks and 0 days, with c ardiac activity identified. Small subchorionic hemorrhage for which short-term follow-up is recommended. Reviewed, dictated and finalized at location A. IMPRESSION: Single intrauterine gestation with an approximate gestational age of 8 weeks an d 0 days, with cardiac activity identified. Small subchorionic hemorrhage for which short-term follow-up is recommended.
== END 2024-12-14 14:13 | disposition home or self-care (01) ==
LOC: GOSHIMG 14:13
PROVIDERS: PCP Student in an Organized Health Care Education/Training Program; Visit Provider Student in an Organized Health Care Education/Training Program
DX: Z34.90 Encounter for supervision of normal pregnancy, unspecified, unspecified trimester (principal)
CPT/HCPCS: 76801; 76817

== ENCOUNTER 2024-12-14 14:47 | Outpatient (CLI) | payer OTHER, SELFPAY ==
--- OUTSIDE RECORDS SUMMARY | 2024-12-14 16:33 | XMS_ITS | Referral Summary ---
Author Organization [facility] [address] Address [address] [place] [address] Care Team Providers Care Nut Sifter Name Role Phone No, Physician Unavailable Brynn Goodwin MD Primary Care Provider Allergies No known active allergies Medications No known medications Active Problems Problem Noted Date Diagnosed Date Chronic pain of left knee 07/13/2021 Assessment & Plan (08/16/2021 7:09 AM STATIONARY STEAM ENGINEER): Chronic, worsening-advised can take Tylenol alternating with ibuprofen OR Aleve for management of pain. Encouraged to apply ice to affected area for 15-20 minutes per application for swelling and to avoid prolonged standing or walking when able. An MRI of left knee was ordered, patient is aware that she should be getting a call to schedule an appointment for the test. Informed that further treatment will depend on outcome of MRI. Assessment & Plan (07/13/2021 12:19 PM STATIONARY STEAM ENGINEER): Chronic, s lightly worsened per patient report, with uncontrolled pain-ordered x-ray of left knee. Informed can take Tylenol or ibuprofen as directed as needed for pain and can apply ice for 15-20 minutes per application for swelling, but not directly to skin. Recommended follow-up with PCP if symptoms do not improve, worsen, or new symptoms develop. Advised will be notified when x-ray results are received/reviewed. Hypotension 11/07/2020 Resolved Problems Problem Noted Date Diagnosed Date Resolved Date Other chest pain 11/29/2020 07/13/2021 36 weeks gestation of 11/07/2020 07/13/2021 Shortness of breath 11/07/2020 07/13/20 21 Social History Tobacco Use Types Packs/Day Years Used Date Smoking Tobacco: Former Cigarettes Q uit: 11/07/2017 Smokeless Tobacco: Never Comments:3-4 years ago AUDIT-C Answer Date Recorded Q1: How often do you have a drink containing alc ohol? Monthly or less 07/13/2021 Q2: How many drinks containi ng alcohol do you have on a typical day when you are drinking? 1 or 2 07/13/2021 Q3: How often do you have si x or more drinks on one occasion? Never 07/13/2021 PHQ-2 Answer Date Recorded PHQ-2 Total Score (If total score is 3 or more points, staff should administer the PHQ-9) 0 07/13/2021 Comments No Sex and Gender Information Value Date Recorded Sex Assigned at Not on file Legal Sex Female 11:55 AM STATIONARY STEAM ENGINEER Gender Identity Not on file Sexual Orientation Not on file Last Filed Vital Signs Vital Sign Reading Time Taken Comments Blood Pressure 98/60 08/04/2024 9:02 AM STATIONARY STEAM ENGINEER Pulse 62 08/04/2024 9:02 AM STATIONARY STEAM ENGINEER Temperature 36.6 C (97.8 F) 08/04/2024 9:02 AM STATIONARY STEAM ENGINEER Respiratory Rate 16 08/04/2024 9:02 AM STATIONARY STEAM ENGINEER Oxygen Saturation 98% 08/04/2024 9:02 AM STATIONARY STEAM ENGINEER Inhaled Oxygen Concentration - - Weight 63.5 kg (140 lb) 08/04/2024 9:02 AM STATIONARY STEAM ENGINEER Height 160 cm (5' 3 ) 08/04/2024 9:02 AM STATIONARY STEAM ENGINEER Body Mass Index 24.8 08/04/2024 9:02 AM STATIONARY STEAM ENGINEER Plan of Treatment Not on file Insurance [employer] [facility] Care Teams Nut Sifter Relationship Specialty Start Date End Date Brynn Goodwin MD PCP - General Obstetrics and Gynecology 11/07/20 No, Physician 11/04/20
--- OUTSIDE RECORDS SUMMARY | 2024-12-14 16:33 | XMS_ITS | Clinical Summary ---
Author Organization [facility] [address] Address [address] [place] [address] Care Team Providers Care Concrete Journeyman Name Role Phone No, Physician Unavailable Brynn Goodwin MD Primary Care Provider Allergies No known active allergies Medications No known medications Active Problems Problem Noted Date Diagnosed Date Chronic pain of left knee 07/13/2021 Assessment & Plan (08/16/2021 7:09 AM ASSISTANT FARM OPERATIONS MANAGER): Chronic, worsening-advised can take Tylenol alternating with [...] MRI. Assessment & Plan (07/13/2021 12:19 PM ASSISTANT FARM OPERATIONS MANAGER): Chronic, s lightly worsened per patient report, [...] 07/13/2021 Shortness of breath 11/07/2020 07/13/20 21 Medical History Medical History Date Comments Heart murmur Arrhythmia Family History Medical History Relation Name Comments Cancer Father Hypertension Father Cancer Mother Relation Name Status Comments Father Alive Mother Alive Social History Tobacco Use Types Packs/Day Years [...] on file Legal Sex Female 11:55 AM ASSISTANT FARM OPERATIONS MANAGER Gender Identity Not on file Sexual Orientation Not on file Obstetrics History Para Term AB IAB SAB Ectopic Multiple Livin g Live Births 1 Date Outcome GA Total Labor Labor/2nd/3rd Weight Sex Type Anes PTL Lori A1 A5 Name Clin Last Filed Vital Signs Vital Sign Reading Time Taken Comments Blood Pressure 98/60 08/04/2024 9:02 AM ASSISTANT FARM OPERATIONS MANAGER Pulse 62 08/04/2024 9:02 AM ASSISTANT FARM OPERATIONS MANAGER Temperature 36.6 C (97.8 F) 08/04/2024 9:02 AM ASSISTANT FARM OPERATIONS MANAGER Respiratory Rate 16 08/04/2024 9:02 AM ASSISTANT FARM OPERATIONS MANAGER Oxygen Saturation 98% 08/04/2024 9:02 AM ASSISTANT FARM OPERATIONS MANAGER Inhaled Oxygen Concentration - - Weight 63.5 kg (140 lb) 08/04/2024 9:02 AM ASSISTANT FARM OPERATIONS MANAGER Height 160 cm (5' 3 ) 08/04/2024 9:02 AM ASSISTANT FARM OPERATIONS MANAGER Body Mass Index 24.8 08/04/2024 9:02 AM ASSISTANT FARM OPERATIONS MANAGER Plan of Treatment Health Maintenance Due Date Last Done Comments Cervical Cancer Screening 1994 Hepatitis C Screening 1994 Varicella Vaccines (1 of 2 - 13+ 2-dose series) 2007 Hepatitis B Screening 2012 Regular Well Visit/Exam 18-64 2012 Depression Screening 07/13/2022 07/13/2021 Covid-19 Vaccine (3 - 2023-2 5 season) 2024 04/13/2021, 03/23/2021 Influenza Vaccine (Season Ended) 2025 05/28/2021 DTaP/Tdap/Td Vaccine (2 - Td or Tdap) 10/14/2030 10/14/2020 HPV Vaccines Aged Out No longer eligi ble based on patient's age to complete this topic Pneumococcal vaccine <65 Aged Out No longer eligible based on patient's age to complete this topic Insurance [id number] Care Teams Concrete Journeyman Relationship Specialty Start Date End Date Brynn Goodwin MD PCP - General Obstetrics and Gynecology 11/07/20 No, Physician 11/04/20
--- OUTSIDE RECORDS SUMMARY | 2024-12-14 16:33 | XMS_ITS | Clinical Summary ---
Author Organization [facility] Address [address] [place] [phone] Phone Care Team Providers Care Coin Teller Name Role Phone Provider, None Primary Care Provider Unavailabl e Immunizations Immunization Administration Dates Next Due TB Skin Test 01/26/2020 Social History Tobacco Use Types Packs/Day Years Used Date Smoking Tobacco: Never Assessed Comments Unknown Sex and Gender Information Value Date Recorded Sex Assigned at Not on file Legal Sex Female 9:55 AM CDT Gender Identity Not on file Sexual Orientation Not on file Plan of Treatment Health Maintenance Due Date Last Done Comments Hepatitis C Virus (HCV) Screening 1994 TdaP Immunization 1994 Hepatitis B Immunization (1 of 3 - 19+ 3-dose series) 2013 Influenza Immunization (#1) 2024 SARS-COV-2 Immunization ( season) 2024 04/13/2021, 03/23/2021 Respiratory Syncytial Virus (RSV) Immunization (Adult) (1 - 1-dose 75+ series) 2069 Cervical Cancer Screening (CCS) Discontinued Pap Smear Discontinued 09/10/2018 HPV/Cotest Discontinued Meningococcal Immunization (ACWY) Aged Out No longer eligible based on patient's age to complete this topic Pneumococcal Immunization Combined Aged Out No longer eligible based on patient's age to complete this topic Rotavirus Immunization Aged Out No lo nger eligible based on patient's age to complete this topic Care Teams Coin Teller Relationship Specialty Start Date End Date Provider, Mauro BLAS PCP - General 01/26/20
--- OUTSIDE RECORDS SUMMARY | 2024-12-14 16:33 | XMS_ITS | Clinical Summary ---
Author Organization [facility] Address [address] [place] [id number] Care Team Providers Care Vp Scientific Name Role Phone Qasim Garcia MD Primary Care Provider Unav ailable Allergies No known active allergies Medications No known medications Family History Medical History Relation Comments Cancer Father Cancer Mother Relation Status Comments Father Mother Social History Tobacco Use Types Packs/Day Years Used Date Smoking Tobacco: Every Day Cigarettes Smokeless Tobacco: Never Alcohol Use Standard Drinks/Week Comments Yes 0 (1 standard drink = 0.6 oz pur e alcohol) social Comments No Sex and Gender Information Value Date Recorded Sex Assigned at Not on file Legal Sex Female 6:02 PM CDT Gender Identity Not on file Sexual Orientation Not on file Last Filed Vital Signs Vital Sign Reading Time Taken Comments Blood Pressure 106/71 11/29/2017 7:12 PM CDT Pulse 78 11/29/2017 7:12 PM CDT Temperature 36.6 C (97.9 F) 11/29/2017 7:12 PM CDT Respiratory Rate 18 11/29/2017 7:12 PM CDT Oxygen Saturation 98% 11/29/2017 7:12 PM CDT Inhaled Oxygen Concentration - - Weight 69.4 kg (153 lb) 11/29/2017 7:12 PM CDT Height 157.5 cm (5' 2 ) 11/29/2017 7:12 PM CDT Body Mass Index 27.98 11/29/2017 7:12 PM CDT Plan of Treatment Health Maintenance Due Date Last Done Comments Cervical Cancer Screening Pa p Smear (Age 30 to 64) Every 3 Years 1994 Annual Physical 1997 Pneumococcal Vaccine: Pediat rics (0 to 5 Years) and At-Risk Patients (6 to 49 Years) (1 of 2 - PCV) 2000 Hepatitis C 2012 DTaP, Tdap and Td Vaccines ( 1 - Tdap) 2013 Hepatitis B Vaccines (1 of 3 - 19+ 3-dose series) 2013 COVID-19 Vaccine ( - 2023-2 5 season) 2024 Cervical Cancer Screening Pa p with HPV Testing (Age 30 to 64) Every 5 Years 2024 Cervical Cancer Screening with HPV 2024 HPV Vaccines Aged Out No longer eligi ble based on patient's age to complete this topic Meningococcal B Vaccine Aged Out No l onger eligible based on patient's age to complete this topic Meningococcal Vaccine Aged Out No medhat ray eligible based on patient's age to complete this topic RSV Immunizations Under 20 Months Aged Out No longer eligible based on patient's age to complete this topic Insurance Care Teams Vp Scientific Relationship Specialty Start Date End Date Qasim Garcia MD PCP - General 04/12/16
--- OUTSIDE RECORDS SUMMARY | 2024-12-14 16:34 | XMS_ITS | Continuity of Care Document ---
Author Organization [facility] Address [address] [address] [place] [address] Phone Care Team Providers Care Electric Frying Pan Repairer Name Role Phone Clint Hawk MD Unavailable Unavailable Allergies, Adverse Reactions, Alerts Substance Reaction Status Criticality No Known Allergies Active No Inform ation Medications Medication Instructions Dosage Effective Dates (start - stop) Status Comments Ativan 0.5 mg tablet take 1 Tablet by oral route 2 times every day as needed as needed 0.5 MG - Active PRN for anxiety, avoid driving or operate machines Procedures Procedure Date PREV VISIT, EST, AGE 18-39 PREV VISIT, EST, AGE 18-39 OFFICE/OUTPATIENT VISIT, EST OFFICE/OUTPATIENT VISIT, EST OFFICE/OUTPATIENT VISIT, EST PREV VISIT, NEW, AGE 18-39 Advance Directives Directive Yes / No Effective Date File Name No Information Encounters Encounter Description Practice Location Reason(s) For Visit Diagnoses Date Provider Providers Copied on Encounter PREV VISIT, EST, AGE 18-39 [facility], [address] [place], [address], tel:[phone] [facility] physical (chief complaint) Encntr for general adult medical exam w/o abnormal findings 0 Kenn Jaramillo. [address], [place], [address] , [place]. tel:[phone] Referring Provider: Clint Hawk [address], [place], [place], [address]. tel:[phone] PREV VISIT, EST, AGE 18-39 [facility], [address], [place], [place], [address], [place] tel:[phone] [facility] PHysical (chief complaint) Encntr for general adult medical exam w/o abnormal findings 8 Kenn Jaramillo. [address], [place], [place], [address] , [place]. tel:[phone] Referring Provider: Balaji Valle [address], [place], [place], [address]. tel:[phone] OFFICE/OUTPA TIENT VISIT, [facility], [address], [place], [place], [address], [place] tel:[phone] [facility] bruising1 (chief complaint) anxiety1 (chief complaint) murmur1 (chief complaint) amenorrhea 1 (chief complaint) Cardiac murmurAmenorrheaSpo ntaneous ecchymosesGeneraliz ed Anxiety Disorder 7 Kenn Jaramillo. [address], [place], [place], [address] , [place]. [phone] Referring Provider: Balaji Valle [address], [place], [place], [address]. tel:[phone] OFFICE/OUTPA TIENT VISIT, [facility], [address], [place], [place], [address], [place] tel:[phone] [facility] amenorrhea 1 (chief complaint) murmur1 (chief complaint) anxiety1 (chief complaint) AmenorrheaCardiac murmurGeneralized Anxiety Disorder 7 Kenn Jaramillo. [address], [place], [place], [address] , [place]. [phone] Referring Provider: Balaji Valle [address], [place], [place], [address]. tel:[phone] OFFICE/OUTPA TIENT VISIT, [facility], [address], [place], [place], [address], [place] tel:[phone] [facility] amenorrhea 1 (chief complaint) cough1 (chief complaint) anxiety1 (chief complaint) cardiac murmur (chief complaint) Cardiac murmurAmenorrheaAcu te bronchitis, unspecifiedGenerali zed Anxiety Disorder 7 Kenn Jaramillo. [address], [place], [place], [address] , [place]. tel:[phone] Referring Provider: Balaji Valle [address], [place], [place], [address]. tel:[phone] PREV VISIT, NEW, AGE 18-39 [facility], [address], [place], [place], [address], [place] tel:[phone] [facility] Physical (chief complaint) Encntr for general adult medical exam w/o abnormal findings 7 Kenn Jaramillo. [address], [place], [place], [address] , [place]. tel:[phone] Referring Provider: Balaji Valle [address], [place], [place], [address]. tel:[phone] Family History Family Member Type Diagnosis Age At Onset Father Problem (finding) Anxiety Sister Problem (finding) Alive and well Mother Problem (finding) breast CA and ovarian C A Mother Problem (finding) Alive and well Payers Payer name Insurance type Covered constitution party ID Authoriza tion(s) No Information Social History Type Description Quantity Date Captured Comments Alcohol Use Details Caffeine Use Details Unknown Tobacco Use Status Ex-cigarette smoker 020 Smoking Status Former smoker Smoking Tobacco Use Details Cigarette: Age Started: 17, Age Stopped: 23, Years Used 6 Cigarette: 1 Cigarettes per day, Pack Year: 0.3 Sex Female Vital Signs Date / Time: Height Weight BMI Pulse Rate Blood Pressure Temperature Respiratory Rate Body Surface Area Head Circumference BMI percentile Pulse Ox Inhaled Ox 6:51 PM 62.00 in 135.00 lbs 24.6 9 kg/m eter (2) Chief Complaint And Reason For Visit From encounter dated '01/14/2020 18:49'. physical (chief complaint). Description: Pt needs annual physical . pt has chronic anxiety ,Pt denies any depression or any suicidal thought. Pt has not been on celexa and ativan for 2-3 years. Pt has occasional panic attacks. Pt wants to try ativan PRn again. pt states that she feels anxious in school and even a shopping center. Pt states that celexa did not seem to work in the past .Pt has irregular period and she has some hirsutism around her chin also. .Pt has period every other 2-3 months Pt has heavy period when she does. Pt saw [facility] and she did see endo and had negative work up pt had negative pelvic ultrasound. Pt tried multiple rounds of OCP but none worked and she coud not tolerateit. Pt thinks that her testosterone was slightly high and she was told that she does not make enough estrogens. Pt was never started on any medications. Pt also has palpitation Pt is seeing dr holder, who cleared her for above condition. Pt had benign cardiac echo. Pt has been diet and exercising andshe lost good amount of weight during the last two years Pt denies any GI issue, early satiety, nausea, vomiting, appetite loss, bloody diarrhea, etc. Plan Of Treatment Date Type Action Status Goal Special diet education compl eted Referral Ordered: Cristobal Holder -Allopathic & Osteopathic Physicians : Internal Medicine : Cardiovascular Disease (related to Encntr for general adult medical exam w/o abnormal findings) ordered Referral Referred To: Cristobal Holder [address] [place], [place] [address] Ordered: Referrals: Allopathic & Osteopathic Physicians : Internal Medicine : Cardiovascular Disease. Cristobal Holder. Evaluate and treat ordered Referral Ordered: Psychiatry - Geriatric (related to Generalized Anxiety Disorder) ordered Referral Ordered: Aimee Lisa MD (related to Amenorrhea) ordered Referral Ordered: Referrals: Psychiatry - Geriatric. Evaluate and treat ordered Referral Referred To: Aimee Lisa MD [address]
[facility] [place], [place], [address] Ordered: Referrals: Aimee Lisa MD. Evaluate and treat ordered Referral Ordered: DOPPLER ECHO EXAM, HEART ordered History Of Present Illness Encounter Date Complaint History Of Prese nt Illness physical Pt needs annual physical . pt has chronic anxiety ,Pt denies any depression or any suicidal thought. Pt has not been on celexa and ativan for 2-3 years. Pt has occasional panic attacks. Pt wants to try ativan PRn again. pt states that she feels anxious in school and even a shopping center. Pt states that celexa did not seem to work in the past .Pt has irregular period and she has some hirsutism around her chin also. .Pt has period every other 2-3 months Pt has heavy period when she does. Pt saw [facility] and she did see endo and had negative work up pt had negative pelvic ultrasound. Pt tried multiple rounds of OCP but none worked and she coud not tolerate it. Pt thinks that her testosterone was slightly high and she was told that she does not make enough estrogens. Pt was never started on any medications. Pt also has palpitation Pt is seeing dr holder, who cleared her for above condition. Pt had benign cardiac echo. Pt has been diet and exercising and she lost good amount of weight during the last two years Pt denies any GI issue, early satiety, nausea, vomiting, appetite loss, bloody diarrhea, etc. PHysical Pt needs annual physical. Pt has chronic amenorrhea. Pt went to see [facility] and also [facility] and she had lab work and she underwent hysteroscopy and was told she has thicken uterine lining. Pt was given medroxyprogesterone x 2 round but she still did not have any period. pt was told to come back to see me. Pt states that she feels intermittent palpitation and she can feel her heart beat about once per day for the past 2 months. Pt states that she has chest pain alogn with the palpitation. Pt denies any radiation of pain to left arm or neck. Pt denies any exertional chest pain. Pt states that she has anxiety and depression. Pt takes lexapro every other day on average and she takes ativan PRn for anxiety. Pt states that lexapro is not helping. Pt denies any suicidal or homicidal thought. Pt denies any crying spells amenorrhea1 Pt is seeing [facility] now at [facility] for her amenorrhea Pt just did some lab. Pt has not had period for 4 weeks. Pt denies any murmur1 Pt has cardiac m urmur. Pt denies nay chest pain or headache Pt had cardiac echo done but results not avaiable today. pt denies any chest pain or sob anxiety1 Pt has chronic a nxiety and depression Pt takes lexapro and ativan and doing ok pt denies any suicidal or homicidal thought Pt denies any cyying seplls. bruising1 Pt nocies easy b ruising for the past 2-3 weeks Pt denies any bleeding. Pt notices multiple bruise spots on her legs comes and goes. anxiety1 Pt has chronic a nxiety and depression Pt has frequent panic attacks. Pt states that she takes ativan which helps Pt has no motivation whatso every> pt has not been taking paxil. pt does not think paxil really helped Pt denies any suicidal or homicidal thought. Pt states that her anxiety is taking over her life. murmur1 Pt has cardiac m urmur. Pt deneis any sob or chest pain. Pt has not done echo yet amenorrhea1 Pt had miscarrai age 5 months ago. Pt states that her LMP was last week. Pt stats that she has period about twice per year. Pt states taht she seen her ict help desk technician and was told to go back on OCP. pt had negative hormone lab recenlty cardiac murmur Pt has a small s ystolic mumur on cardiac exam today. Pt never told about murmur. Pt denies any chest pain or SOB anxiety1 Pt has chronic a nxiety and depression. Pt states that ativan PRN helps but it does not last very long. Pt states that her anxiety and depression is much better with paxil but she still feels overall down. Pt denies any suicidal or homicidal thought Pt denies any crying spells cough1 Pt c/o productiv e cough with green phelg and some sinus symptoms for one week. Pt denies any chest pain or SOB. Pt states that zpak usually helps her symptoms. No fever amenorrhea1 Pt has not had p eriod since 5 months ago. Pt is not . pt has chronic amenorrhea. Pt had lab done and all her hormone level are within normal range. Pt denies any abd pain Physical Pt needs annual physical. Pt has chronic amenorrhea. Pt has period once every 6 months. Pt denies an . Pt also has chronic anxiety and she feels mild depressed due to anxiety Pt states that she has panic attacks once per month with chest pain, difficulty with breasthing, etc. Pt states that the panic attack is rare but she has generalized social anxiety all the time. Pt always worries about everything. Pt failed zoloft, effexor, buspar and celexa Pt denies any other complaints. Pt states that she does have more hair growth under chin area. Instructions Date Instruction Additional Infor mation Special diet education Related t o Body mass index (BMI) 27.0-27.9, adult Follow the prescribed diet. Rela theo to Cardiac murmur Take medications as instructed. Related to Cardiac murmur Prescribed Diet Educ ation/Lifestyle Education Regarding Diet Related to Dietary Surveillance and Counseling Prescribed Activity and Exercise Education Related to Dietary Surveillance and Counseling Weight management Related to Peyton norrhea Quit smoking Related to Ameno rrhea Increase physical activity Relat ed to Amenorrhea Prescribed Diet Educ ation/Lifestyle Education Regarding Diet Related to Dietary Surveillance and Counseling Prescribed Activity and Exercise Education Related to Dietary Surveillance and Counseling Assessments Type Assessment Date assessment Encntr for general adult medical exam w/o abnormal findings Mental Status Date Cognitive Assessment Orientation - [place] ed to time, place, person, situation.
--- OUTSIDE RECORDS SUMMARY | 2024-12-14 16:34 | XMS_ITS | Clinical Summary ---
Author Organization [facility] Address [address] [place] [address] Care Team Providers Care Funeral Attendant Name Role Phone Clint Hawk MD Primary Care Provider [phone] Source Comments [facility],non-owned Affiliates and Associated Physician Practices is amultiple site organization consisting of ambulatory clinics and hospital sitesin [place], [place], [place] and [place]. This disclosure is being madepursuant to the Care Everywhere program and may not contain all information available regarding this patient. Last updated 18.[employer] [facility] Allergies No known active allergies Medications * Be aware that medications may not be up to date on this document. Alwaysverify current medications with the patient. No known medications Active Problems Problem Noted Date Diagnosed Date Encounter for anatomic survey 08/29/2020 Overview (08/29/2020): Head circ greater than abdominal circ on outside scan O+/antibody-neg/ Imm/ rpr-NR/ HIV-NR/ HBSag-NR Plt 336 HH 11.9/35 CMV IggAb- 0.6 Parvo IggAb- 7.1 Cardiac murmur 07/10/2017 Generalized anxiety disorder 07/10/2017 Resolved Problems Problem Noted Date Diagnosed Date Resolved Date Oligomenorrhea 09/10/2018 08/29/2020 Family History Medical History Relation Name Comments Cancer - Bladder Father Hypertension Father Cancer - Ovarian Mother Cancer - Skin, Melanoma Mother Hypertension Mother Relation Name Status Comments Father Mother Social History Tobacco Use Types Packs/Day Years Used Date Smoking Tobacco: Former Cigarettes Q uit: 05/17/2017 Smokeless Tobacco: Never Alcohol Use Standard Drinks/Week Comments No 0 (1 standard drink = 0.6 oz pur e alcohol) Comments No Sex and Gender Information Value Date Recorded Sex Assigned at Not on file Legal Sex Female 5:38 AM TESTING SHAKING SHIPPING Gender Identity Not on file Sexual Orientation Not on file Last Filed Vital Signs Vital Sign Reading Time Taken Comments Blood Pressure 108/72 05/17/2021 8:43 AM CDT Pulse 70 05/17/2021 8:43 AM CDT Temperature 36.6 C (97.9 F) 09/05/2020 8:57 AM TESTING SHAKING SHIPPING Respiratory Rate 14 05/17/2021 8:43 AM CDT Oxygen Saturation 98% 05/17/2021 8:43 AM CDT Inhaled Oxygen Concentration - - Weight 64.1 kg (141 lb 6.4 oz) 05/17/2021 8:43 A M CDT Height 157.5 cm (5' 2 ) 05/17/2021 8:43 AM CDT Body Mass Index 25.86 05/17/2021 8:43 AM CDT Plan of Treatment Health Maintenance Due Date Last Done Comments DTAP/TDAP/TD VACCINES (1 - Tdap) 2013 HEPATITIS B VACCINE (1 of 3 - 19+ 3-dose series) 2013 COVID-19 VACCINE (3 - 2023-2 5 season) 2024 04/13/2021, 03/23/2021 DEPRESSION SCREENING 09/02/2024 INFLUENZA VACCINE (Season Ended) 2025 05/28/2021 ZOSTER VACCINE (1 of 2) 2044 HEPATITIS C SCREENING Completed 01/28/2018 HIV SCREENING Completed 01/28/2018 HIB VACCINE Aged Out No longer eligi ble based on patient's age to complete this topic HPV VACCINE Aged Out No longer eligi ble based on patient's age to complete this topic MENINGOCOCCAL (Group B) VACCINE SHARED DECISION-MAKING Aged Out No longer eligible based on patient's age to complete this topic MENINGOCOCCAL GROUPS A/C/Y/W VACCINE Aged Out No longer eligible b ased on patient's age to complete this topic PNEUMOCOCCAL VACCINE Aged Out No long er eligible based on patient's age to complete this topic Procedures Procedure Name Priority Date/Time Associated Diagnosis Comments HEPATITIS C AB SCREEN RFLX NAAT QUANT STAT 01/28/2018 12:05 PM CDT HIV-1 HIV-2 ANTIGEN/ANTIBODY STAT 01/28/2018 12:05 PM CDT from Last 3 Months or Most Recently Relevant to Health Maintenance Results * HIV-1 HIV-2 ANTIGEN/ANTIBODY (01/28/2018 12:05 PM CDT) HIV Antigen/Antibod y 1 & 2 Non-reacti ve Non-react shantelle 01/28/2018 1:07 PM CDT [facility] Comment: Neither HIV-1 p24 Antigen nor HIV-1/HIV-2 Antibodies are detected. Blood BLOOD SPECIMEN / Unknown Venipuncture / Unknown 01/28/2018 12:05 PM CDT 01/28/2018 12:16 PM CDT Danielle Bill MD LAB - HEMATOLOGY ORDERABLES Fi nal Result Performing Organization Address [facility] Co de Phone Number [address] [phone] * HEPATITIS C AB SCREEN RFLX PCR QUANT (01/28/2018 12:05 PM CDT) Hepatitis C Antibody Non-react shantelle Non-reac tive 01/28/2018 1:09 PM CDT [facility] Comment: Hepatitis C Antibody screen indicates no serologic evidence of past or current infection with Hepatitis C Virus. Patients with unexplained liver disease who are immunocompromised or suspected of having acute Hepatitis C infection may benefit from Nucleic Acid Test (JAYDEN) for Hepatitis C Viral RNA to confirm Hepatitis C status. Blood BLOOD SPECIMEN / Unknown Venipuncture / Unknown 01/28/2018 12:05 PM CDT 01/28/2018 12:16 PM CDT us Danielle Bill MD LAB - CHEMISTRY ORDERABLES Fin al Result Performing Organization Address City/[facility]/ZIP Co de Phone Number [address] [phone] from Last 3 Months or Most Recently Relevant to Health Maintenance Insurance FORMERLY [facility] C[facility] MEDICAID - [place] Care Teams Funeral Attendant Relationship Specialty Start Date End Date Clint Hawk MD [address] [place] [address] PCP - General 01/14/18
[2024-12-14 19:00] LABS: Basophils Absolute Auto 0.1 K/mm3 (0.0-0.1); Basophils Percent Auto 0.7 % (0.2-1.2); Eosinophils Absolute Auto 0.1 K/mm3 (0-0.3); Hematocrit 37.4 % (37.0-47.0); Hemoglobin 12.7 g/dL (12.0-15.0); Immature Granulocyte Absolute 0.03 K/mm3 (0.00-0.031); Immature Granulocyte Percent A 0.3 % (0-0.5); Lymphocytes Absolute Auto 2.14 K/mm3 (0.9-3.2); Lymphocytes Percent Auto 23.6 % (18.3-44.2); Mean Corpuscular Hemoglobin 29.7 pg (26-34); Mean Corpuscular Volume 87.4 fl (80-100); Mean Platelet Volume 10.8 fl (7.4-10.4); Monocytes Absolute Auto 0.5 K/mm3 (0.1-0.6); Monocytes Percent Auto 5.1 % (2.6-8.5); Neutrophils Absolute Auto 6.3 K/mm3 (1.3-6.7); Neutrophils Percent Auto 69.3 % (45.5-73.1); Platelet Count Result 336 k/mm3 (150-375); Red Blood Count 4.28 M/mm3 (4.2-5.4); Red Cell Distribution Width 13.2 % (11.5-14.5); White Blood Count 9.1 K/mm3 (4.5-10.0)
[2024-12-14 19:55] LABS: Syphilis IgG/IgM Antibody Negative (Negative)
[2024-12-14 19:56] LABS: Hepatitis B Surface Antigen Negative (Negative); Rubella IgG Antibody 15.1 IU/ML
[2024-12-14 20:09] LABS: HIV 1/2 Ab P24 Ag Result Negative (Negative)
[2024-12-15 13:33] LABS: CMV IgG Antibody <0.60 U/mL; Varicella IgG Antibody 6.37 S/CO
== END 2024-12-14 14:48 | disposition home or self-care (01) ==
LOC: ANHGOSHLAB 14:48
PROVIDERS: PCP Student in an Organized Health Care Education/Training Program; Visit Provider Obstetrics & Gynecology
DX: Z34.90 Encounter for supervision of normal pregnancy, unspecified, unspecified trimester (principal)
CPT/HCPCS: 36415; 84702; 85025; 86593; 86644; 86703; 86747; 86762; 86787; 86850; 86900; 86901; 87086; 87340; G0432

== ENCOUNTER 2025-07-15 22:01 | Observation (INO) | payer OTHER, SELFPAY ==
--- OUTSIDE RECORDS SUMMARY | 2014-07-27 10:00 | XMS_ITS | Continuity of Care Document ---
Author Organization [facility] Address [address] [place] [address] [address] [place] [address] Phone Care Team Providers Care Mental Health Case Manager Name Role Phone Arturo PT, CMPT, Lawrence Unavailable Tracey vailable Procedures Procedure Date PT RE-EVALUATION THERAPEUTIC EXERCISES NEUROMUSCULAR RE-ED FUNC ACTIVITY HOT/COLD PACK ELECTRIC STIMULATION UNATT THERAPEUTIC EXERCISES NEUROMUSCULAR RE-ED MANUAL THERAPY FUNC ACTIVITY HOT/COLD PACK ELECTRIC STIMULATION UNATT THERAPEUTIC EXERCISES NEUROMUSCULAR RE-ED MANUAL THERAPY FUNC ACTIVITY HOT/COLD PACK ELECTRIC STIMULATION UNATT PT RE-EVALUATION THERAPEUTIC EXERCISES NEUROMUSCULAR RE-ED MANUAL THERAPY HOT/COLD PACK ELECTRIC STIMULATION UNATT THERAPEUTIC EXERCISES NEUROMUSCULAR RE-ED MANUAL THERAPY HOT/COLD PACK ELECTRIC STIMULATION UNATT THERAPEUTIC EXERCISES NEUROMUSCULAR RE-ED MANUAL THERAPY HOT/COLD PACK ELECTRIC STIMULATION UNATT THERAPEUTIC EXERCISES NEUROMUSCULAR RE-ED MANUAL THERAPY HOT/COLD PACK ELECTRIC STIMULATION UNATT PT EVALUATION THERAPEUTIC EXERCISES Advance Directives Directive Yes / No Effective Date File Name No Information Encounters Encounter Description Practice Location Reason(s) For Visit Diagnoses Date Provider Providers Copied on Encounter [address], [id number], tel:[phone] [place] No Information Thiago Bravo. [address] [place] [address], [address], [place], [place], [facility], . tel:[phone], [place], [place], [id number], tel:[phone] [place] No Information Thiago Bravo. [address] [place] [address], [address], [place], [place], [facility], . tel:[phone] [address], [place], [place], [id number], tel:[phone] [place] No Information Thiago Bravo. [address] [facility], [address], [place], [place], [facility], [place]. tel:[phone], [place], [id number], tel:[phone] [place] No Information King Goodwin. [address] [facility], [address], [place], [place], [facility], [place]. tel:[phone] [address], [place], [place], [id number], tel:[phone] [place] No Information Thiago Bravo. [address] [place] [address], [address], [place], [place], [facility], . tel:[phone], [place], [place], [id number], tel:[phone] [place] No Information King Goodwin. [address] [facility], [address], [place], [address] [place] [address]. tel:[phone], [place], [place], [id number], tel:[phone] [place] No Information Thiago Bravo. [address] [facility], [address], [place], [facility], . tel:[phone], [place], [place], [id number], tel:[phone] [place] Lumbago Thiago Bravo. [address] [facility], [facility] [address], [place], [facility], . tel:[phone] Family History Family Member Type Diagnosis Age At Onset No Information Payers Payer name Insurance type Covered constitution party ID [facility] CI [id number] Social History Type Description Quantity Date Captured Comments Sex Female Smoking Status No Information Chief Complaint And Reason For Visit No Information Reason For Referral Reason For Referral No Information History Of Present Illness Encounter Date Complaint History Of Prese nt Illness No Information Functional Status Date Functional Assessmen t No Information Instructions Date Instruction Additional Infor mation No Information Assessments Type Assessment Date No Information Patient Care Teams Name Effective Dates (start - stop) Status Members No Information
[2025-07-15 22:12] VITALS: TEMP 36.6
--- OUTSIDE RECORDS SUMMARY | 2025-07-16 00:25 | XMS_ITS | Clinical Summary ---
Author Organization [facility] Address [address] [place] [address] Care Team Providers Care Assurance Engineer Name Role Phone Qasim Garcia MD Primary [...] 7:12 PM CDT Height 157.5 cm (5' 2) 11/29/2017 7:12 PM CDT Body Mass Index 27.98 11/29/2017 7:12 PM CDT Plan of Treatment Health Maintenance Due Date Last Done Comments Cervical Cancer Screening Pa p Smear (Age 30 to 64) Every 3 Years 1994 Annual Physical 1997 Hepatitis C 2012 DTaP, Tdap and Td Vaccines ( 1 - Tdap) 2013 Hepatitis B Vaccines (1 of 3 - 19+ 3-dose series) 2013 Pneumococcal Vaccine: Pediat rics (0 to 5 Years) and At-Risk Patients (6 to 49 Years) (1 of 2 - PCV) 2013 HPV Vaccines (1 - 3-dose SCD M series) 2021 Cervical Cancer Screening Pa p with HPV Testing (Age 30 to 64) Every 5 Years 2024 Cervical Cancer Screening with HPV 2024 COVID-19 Vaccine ( - 2024-2 6 season) 2025 Influenza Adult (#1) 2025 Hepatitis A Vaccines Aged Out No long er eligible based [...] to complete this topic Insurance Care Teams Assurance Engineer Relationship Specialty Start Date End Date Qasim Garcia MD PCP - General 04/12/16
--- OUTSIDE RECORDS SUMMARY | 2025-07-16 00:25 | XMS_ITS | Clinical Summary ---
Author Organization [facility] Address [address] [place] [address] Care Team Providers Care Asic Verification Engineer Name Role Phone Clint Hawk MD Primary Care Provider [phone] Source Comments [facility],non-owned Affiliates and Associated Physician Practices is amultiple site organization consisting of ambulatory clinics and hospital sitesin [place], [place], [place] and [place]. This disclosure is being madepursuant to the Care Everywhere program and may not contain all information available regarding this patient. Last updated 18.[employer] [facility] Allergies No known active allergies Medications * [...] Years Used Date Smoking Tobacco: Former Cigarettes 0 Q uit: 05/17/2017 Smokeless Tobacco: Never Alcohol Use Standard Drinks/Week Comments No 0 (1 standard drink = 0.6 oz pur e alcohol) Comments No Sex and Gender Information Value Date Recorded Sex Assigned at Not on file Legal Sex Female 5:38 AM BAR BACK Gender Identity Not on file Sexual Orientation Not on file Last Filed Vital Signs Vital Sign Reading Time Taken Comments Blood Pressure 108/72 05/17/2021 8:43 AM CDT Pulse 70 05/17/2021 8:43 AM CDT Temperature 36.6 C (97.9 F) 09/05/2020 8:57 AM BAR BACK Respiratory Rate 14 05/17/2021 8:43 AM CDT Oxygen Saturation 98% 05/17/2021 8:43 AM CDT Inhaled Oxygen Concentration - - Weight 64.1 kg (141 lb 6.4 oz) 05/17/2021 8:43 A M CDT Height 157.5 cm (5' 2) 05/17/2021 8:43 AM CDT Body Mass Index 25.86 05/17/2021 8:43 AM CDT Plan of Treatment Health Maintenance Due Date Last Done Comments DTAP/TDAP/TD VACCINES (1 - Tdap) 2013 HEPATITIS B VACCINE (1 of 3 - 19+ 3-dose series) 2013 HPV VACCINE (1 - 3-dose SCDM series) 2021 DEPRESSION SCREENING 09/02/2024 COVID-19 VACCINE (3 - 2024-2 6 season) 2025 04/13/2021, 03/23/2021 INFLUENZA VACCINE (#1) 2025 05/28/2021 ZOSTER VACCINE (1 of 2) [...] ve Non-react shantelle 01/28/2018 1:[address] [facility] Comment: Neither HIV-1 p24 Antigen nor HIV-1/HIV-2 Antibodies are detected. Blood BLOOD SPECIMEN / Unknown Venipuncture / Unknown 01/28/2018 12:05 PM CDT 01/28/2018 12:16 PM CDT Danielle Bill MD LAB - HEMATOLOGY ORDERABLES Fi nal Result Performing Organization Address [facility] Co de Phone Number [address] [phone] * HEPATITIS C AB SCREEN RFLX PCR QUANT (01/28/2018 12:05 PM CDT) Hepatitis C Antibody Non-react shantelle Non-reac tive 01/28/2018 1:09 PM CDT [facility] Comment: Hepatitis C Antibody screen indicates no [...] ORDERABLES Fin al Result Performing Organization Address City/[facility]/ZIP Co de Phone Number [address] [phone] from Last 3 Months or Most Recently Relevant to Health Maintenance Insurance FORMERLY [facility] MEDICAID - [place] Care Teams Asic Verification Engineer Relationship Specialty Start Date End Date Clint Hawk MD [address] [place] [address] PCP - General 01/14/18
--- OUTSIDE RECORDS SUMMARY | 2025-07-16 00:25 | XMS_ITS | Clinical Summary ---
Author Organization [facility] [address] Address [address] [place] [address] Care Team Providers Care Geometrician Name Role Phone No, Physician Unavailable Brynn Goodwin MD Primary Care Provider Allergies No known active allergies Medications No known medications Active Problems Problem Noted Date Diagnosed Date Chronic pain of left knee 07/13/2021 Assessment & Plan (08/16/2021 7:09 AM TECHNICAL ILLUSTRATIONS MAP INKER): Chronic, worsening-advised can take Tylenol alternating with [...] MRI. Assessment & Plan (07/13/2021 12:19 PM TECHNICAL ILLUSTRATIONS MAP INKER): Chronic, s lightly worsened per patient report, [...] when x-ray results are received/reviewed. Hypotension 11/07/2020 Estimated Date of Delivery Comme nts Yes 07/22/2025 Based on Other B asis Resolved Problems Problem Noted Date Diagnosed Date Resolved Date Other chest pain 11/29/2020 07/13/2021 36 weeks gestation of 11/07/2020 07/13/2021 Shortness of breath 11/07/2020 07/13/20 21 Encounters Date Type Department Care Team Description 07/07/2025 9:01 AM TECHNICAL ILLUSTRATIONS MAP INKER - 07/07/2025 11:56 AM TECHNICAL ILLUSTRATIONS MAP INKER Hospital Encounter [address] [id number] Eli Parra MD Discharge Disposition: Discharge to home or self care from Last 3 Months Medical History Medical History Date Comments Heart [...] staff should administer the PHQ-9) 0 07/13/2021 Estimated Date of Delivery Comme nts Yes 07/22/2025 Based on Other B asis Sex and Gender Information Value Date Recorded Sex Assigned at Not on file Legal Sex Female 11:55 AM TECHNICAL ILLUSTRATIONS MAP INKER Gender Identity Not on file Sexual Orientation Not on file Obstetrics History Para Term AB IAB SAB Ectopic Multiple Livin g Live Births 4 1 1 2 1 1 1 1 Date Outcome GA Total Labor Labor/2nd/3rd Weight Sex Type Anes PTL Lori A1 A5 Name Clin 01/19 17 SAB 01/19 18 IAB 12/15 Term F Vaginal Living Current Summary Episode Dates Number of Fetuses Estimated Date of Delivery 07/07/2025 - Present (07/16/2025) 07/22/2025 (set by Ubaldo Maher RN on 07/07/2025 based on Other Basis) Dating Summary Based On ALL GA Diff Other Basis 07/22/2025 Working Last Menstrual Period on 05/03/2024 Comment:Says she is always i rregular Ultrasound on 12/14/2024 07/23/2025 -1d GA:8w3d Vitals Pregravid Weight Height TWG (As of 07/16/2025) Pregrav id BMI 157.5 cm (5' 2) Date GA Fund Present FHR Mvmt BP Weight Edema Alb Glu Ket Dil/ Eff/Sta 37w6d Inpatient data not displayed here. See encounter summary. Last Filed Vital Signs Vital Sign Reading Time Taken Comments Blood Pressure 108/65 07/07/2025 10:14 AM TECHNICAL ILLUSTRATIONS MAP INKER Pulse 79 07/07/2025 10:14 AM TECHNICAL ILLUSTRATIONS MAP INKER Temperature 36.4 C (97.5 F) 07/07/2025 9:06 AM TECHNICAL ILLUSTRATIONS MAP INKER Respiratory Rate 18 07/07/2025 9:06 AM TECHNICAL ILLUSTRATIONS MAP INKER Oxygen Saturation 96% 07/07/2025 10: 14 AM TECHNICAL ILLUSTRATIONS MAP INKER Inhaled Oxygen Concentration - - Weight 79.8 kg (175 lb 14.4 oz) 07/07/2025 9:06 AM TECHNICAL ILLUSTRATIONS MAP INKER Height 157.5 cm (5' 2) 07/07/2025 9:06 AM TECHNICAL ILLUSTRATIONS MAP INKER Body Mass Index 32.17 07/07/2025 9:06 AM TECHNICAL ILLUSTRATIONS MAP INKER Plan of Treatment Upcoming Encounters Date Type Department Care Team (Late st Contact Info) Description 07/22/2025 8:00 AM TECHNICAL ILLUSTRATIONS MAP INKER Hospital Encounter [facility] [address] [place] [address] Eli Parra MD [address] [facility] [phone] [place] [address] Health Maintenance Due Date Last Done Comments Cervical Cancer Screening 1994 Hepatitis C Screening 1994 Varicella Vaccines (1 of 2 - 13+ 2-dose series) 2007 Hepatitis B Screening 2012 Regular Well Visit/Exam 18-64 2012 HPV Vaccines (1 - 3-dose SCD M series) 2021 Depression Screening 07/13/2022 07/13/2021 Covid-19 Vaccine (3 - 2024-2 6 season) 2025 04/13/2021, 03/23/2021 Influenza Vaccine (#1) 2025 05/28/2021 DTaP/Tdap/Td Vaccine (2 - Td or Tdap) 10/14/2030 10/14/2020 Pneumococcal vaccine <65 Aged Out No longer eligible based on patient's age to complete this topic Procedures Procedure Name Priority Date/Time Associated Diagnosis Comments EGFR Routine 07/07/2025 10:26 AM TECHNICAL ILLUSTRATIONS MAP INKER DIFFERENTIAL AUTO Routine 07/07/2025 10: 26 AM TECHNICAL ILLUSTRATIONS MAP INKER COMPREHENSIVE METABOLIC PANEL Routine 07/07/2025 10:26 AM TECHNICAL ILLUSTRATIONS MAP INKER CBC WITH AUTO DIFFERENTIAL Routine 07/07/2025 10:26 AM TECHNICAL ILLUSTRATIONS MAP INKER ECG 12-LEAD STAT 07/07/2025 10:06 AM TECHNICAL ILLUSTRATIONS MAP INKER POCT GLUCOSE DEVICE Routine 07/07/2025 9 :36 AM TECHNICAL ILLUSTRATIONS MAP INKER POCT URINALYSIS (CLINITEK) Routine 07/07/2025 9:15 AM TECHNICAL ILLUSTRATIONS MAP INKER from Last 3 Months Results * eGFR (07/07/2025 10:26 AM TECHNICAL ILLUSTRATIONS MAP INKER) eGFR >90 >=60 mL/min/1. 73 m2 Comment: Interpretive Data Reference Interval Normal >/= 90 mL/min/1.73m2 Mildly decreased* 60 - 89 mL/min/1.73m2 Mildly to moderately decreased 45 - 59 mL/min/1.73m2 Moderately to severely decreased 30 - 44 mL/min/1.73m2 Severely decreased 15 - 29 mL/min/1.73m2 Kidney Failure < 15 mL/min/1.73m2 *Relative to young adult level Estimated glomerular filtration rate is determined by the 2020 CKD-EPI equation recommended by the National Kidney Foundation (A Unifying Approach to GFR Estimation: Recommendations of the NKF-ASK Task Force on Reassessing the Inclusion of Race in Diagnosing Kidney Disease, JASN 2021). The CKD-EPI equation should not be used for patients with unstable renal function and has not been validated in children and those over 70. Current interpretive data was last reviewed 2021. Blood 07/07/2025 10:2 6 AM TECHNICAL ILLUSTRATIONS MAP INKER 07/07/2025 10:39 AM TECHNICAL ILLUSTRATIONS MAP INKER us Isis Kovacs CORPORATE TREASURER LAB BLOOD ORDERABLES Final R esult [facility] [place] [address] * Differential, auto (07/07/2025 10:26 AM TECHNICAL ILLUSTRATIONS MAP INKER) Neutrophil abs 4.88 1.50 - 6.50 K/cumm Imm gran abs 0.03 0.00 - 0.10 K/cumm [facility] Lymphocyte abs 1.49 0.80 - 3.30 K/cumm [facility] Monocyte abs 0.48 0.20 - 0.80 K/cumm [facility] Eosinophil abs 0.04 0.00 - 0.50 K/cumm [facility] Basophil abs 0.02 0.00 - 0.10 K/cumm [facility] Neutrophil pct 70.3 % [facility] Comment: Interpretive Data Percent cell count reference ranges are not reported, since discordance with absolute values may lead to misinterpretation of CBC data. Current Interpretive Data was last revised on 2017. Imm gran pct 0.4 % [facility] Comment: Interpretive Data Percent cell count reference ranges are not reported, since discordance with absolute values may lead to misinterpretation of CBC data. Current Interpretive Data was last revised on 2017. Lymphocyte pct 21.5 % [facility] Comment: Interpretive Data Percent cell count reference ranges are not reported, since discordance with absolute values may lead to misinterpretation of CBC data. Current Interpretive Data was last revised on 2017. Monocyte pct 6.9 % [facility] Comment: Interpretive Data Percent cell count reference ranges are not reported, since discordance with absolute values may lead to misinterpretation of CBC data. Current Interpretive Data was last revised on 2017. Eosinophil pct 0.6 % [facility] Comment: Interpretive Data Percent cell count reference ranges are not reported, since discordance with absolute values may lead to misinterpretation of CBC data. Current Interpretive Data was last revised on 2017. Basophil pct 0.3 % [facility] Comment: Interpretive Data Percent cell count reference ranges are not reported, since discordance with absolute values may lead to misinterpretation of CBC data. Current Interpretive Data was last revised on 2017. Blood 07/07/2025 10:2 6 AM TECHNICAL ILLUSTRATIONS MAP INKER 07/07/2025 10:39 AM TECHNICAL ILLUSTRATIONS MAP INKER us Isis Kovacs CORPORATE TREASURER LAB BLOOD ORDERABLES Final R esult [facility] [place] [address] * (ABNORMAL) CBC with auto differential (07/07/2025 10:26 AM TECHNICAL ILLUSTRATIONS MAP INKER) WBC 6.94 3.80 - 9.90 K/cumm Hgb 10.3(L) 11.9 - 15.5 g/dL [facility] Hct 30.5(L) 35.6 - 45.5 % [facility] Plt 225 150 - 400 K/cumm [facility] MPV 11.5 9.1 - 12.3 fL [facility] RBC 3.55(L) 3.90 - 5.20 M/cumm [facility] MCV 85.9 81.3 - 96.4 fL [facility] MCH 29.0 27.1 - 33.3 pg [facility] MCHC 33.8 32.3 - 35.7 g/dL [facility] RDW CV 13.3 11.1 - 14.9 % [facility] RDW SD 41.9 35.7 - 48.1 fL [facility] NRBC abs 0.00 0.00 - 0.01 K/cumm [facility] Blood 07/07/2025 10:2 6 AM TECHNICAL ILLUSTRATIONS MAP INKER 07/07/2025 10:39 AM TECHNICAL ILLUSTRATIONS MAP INKER us Isis Kovacs CORPORATE TREASURER LAB BLOOD ORDERABLES Final R esult [facility] [place] [address] * (ABNORMAL) Comprehensive metabolic panel (07/07/2025 10:26 AM TECHNICAL ILLUSTRATIONS MAP INKER) Sodium 135 135 - 145 mmol/L Potassium, pl 3.8 3.3 - 4.9 mmol/L [facility] Chloride 103 97 - 110 mmol/L [facility] CO2 22 22 - 32 mmol/L [facility] Anion gap 10 2 - 15 mmol/L [facility] BUN 9 6 - 25 mg/dL [facility] Creatinine 0.51(L) 0.60 - 1.10 mg/dL [facility] Glucose 92 70 - 199 mg/dL [facility] Comment: Interpretive Data Fasting glucose >/= 126 mg/dl is diagnostic for diabetes. Fasting is defined as no caloric intake for at least 8 hours. Fasting glucose between 100 mg/dl to 125 mg/dl is diagnostic of prediabetes. In a patient with classic symptoms of hyperglycemia or hyperglycemic crisis, a random glucose >/= 200 mg/dl is diagnostic for diabetes. In the absence of unequivocal hyperglycemia, results should be confirmed by repeat testing. The classification and Diagnosis of Diabetes Diabetes Care 202; 46: S19-S40. Current interpretive data was last revised 2022. Calcium 9.0 8.5 - 10.3 mg/dL [facility] Bilirubin, total 0.3 0.1 - 1.2 mg/dL [facility] Protein, pl 6.7 6.5 - 8.5 g/dL [facility] Albumin 3.4(L) 3.5 - 5.0 g/dL [facility] Alk phos 130 40 - 130 Units/L [facility] ALT 20 7 - 45 Units/L [facility] AST 24 10 - 45 Units/L [facility] Blood 07/07/2025 10:2 6 AM TECHNICAL ILLUSTRATIONS MAP INKER 07/07/2025 10:39 AM TECHNICAL ILLUSTRATIONS MAP INKER us Isis Kovacs CORPORATE TREASURER LAB BLOOD ORDERABLES Final R esult Performing Organization Address [facility] Co de Phone Number [facility] Department [place] [address] * ECG 12 lead (07/07/2025 10:06 AM TECHNICAL ILLUSTRATIONS MAP INKER) [facility] Ventricular Rate EKG/Min 86 BPM [facility] Atrial Rate 86 BPM [facility] TX-Interval (MSEC) 156 ms [facility] QRS-Interval (MSEC) 80 ms [facility] QT-Interval (MSEC) 368 ms [facility] QTc 440 ms [facility] P Lexa 60 degrees [facility] R Lexa 29 degrees [facility] T Lexa 25 degrees [facility] Diagnosis Normal sinus rhythm Poor r wave progression associated with abnormal lead placement, obesity, pulmonary disease, anterior infarction. Borderline ECG No previous ECGs available Confirmed by MARTÍN RAZO M.D ([id number]) on 07/07/2025 4:41:29 PM [facility] 07/07/2025 10:0 6 AM TECHNICAL ILLUSTRATIONS MAP INKER 07/07/2025 4:41 PM TECHNICAL ILLUSTRATIONS MAP INKER Maite Sexton CORPORATE TREASURER ECG ORDERABLE S Final Result Performing Organization Address [facility] Phone Number [facility] * POCT glucose (07/07/2025 9:36 AM TECHNICAL ILLUSTRATIONS MAP INKER) Glucose, POC 120 70 - 199 mg/dL Blood 07/07/2025 9:36 AM TECHNICAL ILLUSTRATIONS MAP INKER 07/07/2025 9:36 AM TECHNICAL ILLUSTRATIONS MAP INKER Eli Parra MD LAB POCT ORDERABLES - DEVICE Final Result Performing Organization Address [facility] Co de Phone Number [facility] Department [place] [address] * (ABNORMAL) POCT urinalysis (Clinitek) (07/07/2025 9:15 AM TECHNICAL ILLUSTRATIONS MAP INKER) Color, ur, POC Yellow Yellow Clarity, UA, POC Clear Clear [facility] Glucose, ur, POC Negative Negative [facility] Bilirubin, ur, POC Negative Negative [facility] Ketones, ur, POC Trace(A) Negative [facility] Specific gravity, ur, POC 1.020 1.010 - 1.025 [facility] Blood, ur, POC Negative Negative [facility] pH, ur, POC 7.0 [facility] Comment: Interpretive Data Urine pH is affected by diet, medications, systemic acid-base disturbances, and renal tubular function. pH may affect urinary stone formation. For example, urine pH below 6.0 may help reduce the tendency for calcium phosphate stones and pH greater than 6.0 may reduce the tendency for uric acid stone formation. Source: [place] [employer]. Last Revised Date: 09-12-2017 Protein, ur, POC 2+(A) Negative [facility] Urobilinogen, ur, POC 2.0 mg/dL(A) mg/dL [facility] Nitrites, ur, POC Negative Negative [facility] Leukocyte esterase, ur, POC Trace(A) Negative [facility] Urine 07/07/2025 9:15 AM TECHNICAL ILLUSTRATIONS MAP INKER 07/07/2025 9:15 AM TECHNICAL ILLUSTRATIONS MAP INKER Eli Parra MD LAB POCT ORDERABLES - DEVICE Final Result [facility] [place] [address] from Last 3 Months Insurance [employer] Contactually Address: [address] [place] [address] [employer] Address: [address] [place] [address] [employer] Care Teams Geometrician Relationship Specialty Start Date End Date Brynn Goodwin MD PCP - General Obstetrics and Gynecology 11/07/20 No, Physician 11/04/20
--- NOTE | 2025-07-28 09:24 | PM.OBTRLD ---
OB - Triage/Final Diagnosis Visit Information Comments/Additional reasons for admission: I have assessed the risk for this patient, Ruthy Bagley, and determined that she would benefit from observation care. Final Diagnosis (1) False labor: Code(s): O47.9 - False labor, unspecified Status: Acute
== END 2025-07-16 00:30 | disposition home or self-care (01) ==
PROVIDERS: Admitting Provider Obstetrics & Gynecology; PCP Family Medicine; Visit Provider Obstetrics & Gynecology
DX: O47.1 False labor at or after 37 completed weeks of gestation (principal); Z3A.39 39 weeks gestation of pregnancy
CPT/HCPCS: G0378; G0379

== ENCOUNTER 2025-07-16 20:37 | Inpatient (IN) | payer OTHER, SELFPAY ==
[2025-07-16] VITALS (7 sets, daily range): BP systolic 94–114; BP diastolic 67–75; PULSE 65–77; BMI 32.6
[2025-07-16 21:21] LABS: Hematocrit 31.5 % (37.0-47.0); Hemoglobin 10.3 g/dL (12.0-15.0); Immature Granulocyte Percent A 0.2 % (0-0.5); Lymphocytes Absolute Auto 2.18 K/mm3 (0.9-3.2); Mean Corpuscular HGB Conc 32.7 g/dl (32-36); Mean Corpuscular Hemoglobin 28.4 pg (26-34); Mean Corpuscular Volume 86.8 fl (80-100); Nucleated Red Blood Cells Absolute Auto 0.000 K/mm3 (0.0-0.012); Nucleated Red Blood Cells Perc 0.0 % (0.0-0.2); Platelet Count Result 202 k/mm3 (150-375); Red Blood Count 3.63 M/mm3 (4.2-5.4); White Blood Count 6.3 K/mm3 (4.5-10.0)
[2025-07-16] MEDS: FAMOTIDINE 20 MG/2 ML VIAL IV PUSH (21:40)
[2025-07-16] MEDS: DINOPROSTONE 10 MG VAG INSERT VAGINAL (21:50)
[2025-07-16 22:00] LABS: Syphilis IgG/IgM Antibody Non-Reactive (Nonreactive)
--- NOTE | 2025-07-16 22:11 | LDADM ---
This patient, Ruthy Bagley, was admitted to Labor/Delivery/Recovery 103 on 07/16/25 at 20:37. Plans for labor, pain management and were discussed with patient. Patient/family oriented to hospital policies and general routines including ID bracelet, bed and alarms, visiting hours, pain management, procedures, bathroom and other care routines, personal items, smoking policy, room service/diet and guest tray routines, infant security routines, and visiting hours. Patient/Family are encouraged to report perceived risks to care and to ask questions if they do not understand what they are told or what they should do. See OBIX for further documentation.
[2025-07-17] VITALS (202 sets, daily range): BP systolic 79–128; BP diastolic 57–105; PULSE 52–102; RESP 16; TEMP 36.5–36.9; O2SAT 81–100
[2025-07-17] MEDS: LACTATED RINGERS 1,000 ML 125 ML IV CONT ×3 (05:10→16:34)
[2025-07-17] MEDS: fentaNYL CITRATE INJ (*CRX) 100 MCG/2 ML VIAL IV PUSH (05:20)
[2025-07-17] MEDS: OXYTOCIN 30 UNITS/NS 500 ML 30 UNITS/500 ML BAG IV CONT (07:10)
[2025-07-17] MEDS: ONDANSETRON INJ 4 MG/2 ML VIAL IV PUSH (08:48)
--- NOTE | 2025-07-17 09:12 | PM.IMHP ---
H&P: HPI History of Present Illness Date/Time: 07/17/25 08:00 Chief Complaint: induction of labor Narrative: Ruthy is a 29yo @ 39.1wks who presented overnight for elective IOL; s/p cervidil. She reports good movement. No vb or lof. She has had regular care. Her is complicated by: - H/o hypotension s/p normal cards w/u and cardiology visits in 1st preg - Low lying placenta; RESOLVED Review of Systems Constitutional: Constitutional: Denies chills, Denies fever(s) and Denies headache(s) Eyes: Eyes: Denies change in vision ENT: Denies headache(s) Cardiovascular: Cardiovascular: Denies chest pain and Denies dyspnea Respiratory: Respiratory: Denies dyspnea Genitourinary: Genitourinary: Denies abnormal vaginal bleeding and Denies vaginal discharge Neurologic: Denies headache(s) Psychiatric: Psychiatric: Denies anxiety and Denies depression [facility] Past Medical History Medical History Abnormal glucose tolerance in Heart palpitations Encounter for IUD removal 2012 Encounter for insertion of mirena IUD 2010 Normal vaginal delivery Late deceleration of heart rate Vaginal discharge during Surgical History Surgical History History of tonsillectomy Family History Family History Father Hypertension Family history of malignant neoplasm of urinary bladder Mother Family history of malignant melanoma Family history of malignant neoplasm of breast in first degree relative Social History Social History Social History: Single Years smoked: 2 Smoking status: Never smoker Tobacco type: e-cigarettes/vaping Second hand tobacco smoke exposure: No Alcohol intake: former Alcohol use details: Twice a month Substance use: never Substance use type: does not use Lack of Transportation: No Lack of Food: Never True Current Housing: I Have Housing Concerned About Future Housing: No Difficulty Paying Gas/Electric Bills: No Difficulty Paying for Meds: No Currently Unemployed: No Education: Associate Degree Difficulty w/ Childcare or Family Care: No Living arrangements: with family Additional living arrangements comments: fianc? 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 Gender identity (if verbalized by the patient): Female Sexual Orientation (if Verbalized by the Patient): Straight or Heterosexual Spiritual care concerns: No Meds Home Medications and Allergies Home Medications ?Medication ?Instructions ?Recorded ?Confirmed ?Type docosahexaenoic acid 200 mg mg PO 12/09/24 07/15/25 History capsule ( DHA) RSV vac, preF A and preF B(PF) 120 0.5 ml IM ONCE #1 ea 06/01/25 07/15/25 Rx mcg/0.5 mL IM solution (Abrysvo (PF)) famotidine 20 mg tablet 20 mg PO DAILY 07/01/25 07/17/25 History ferrous sulfate 325 mg (65 mg 325 mg PO DAILY 07/01/25 07/17/25 History iron) tablet Allergies Allergy/AdvReac Type Severity Reaction Status Date / Time No Known Allergies Allergy Verified 07/16/25 22:11 Exam Const: General: cooperative, healthy appearing, comfortable and no acute distress Orientation/consciousness: patient oriented x3 Resp: Effort & Inspection: normal respiratory effort Cardio: Rate: regular rate GI: GI Palp: No abdominal tenderness : Other: FHT's: 150's/ mod angie/ + accels/ no decels - cat 1 TOCO: ctxs q2-3min Cervix: 3/50/-3 Membranes: AROM, clear 0915 Presentation: cephalic Skin: General skin exam: normal color Neuro: General: patient oriented x3 Extrem: General: normal to inspection Psych: Appearance: grossly normal Affect: normal affect Attitude: cooperative Assessment and Plan Assessment and plan (1) Encounter for induction of labor: Code(s): Z34.90 - Encounter for supervision of normal , unspecified, unspecified trimester Status: Acute Plan - Admitted overnight for induction of labor; risks and benefits discussed - s/p cervidil overnight; cervix favorable - AROM, clear @ 0915 - Low dose pitocin per protocol - Continuous monitoring - GBS neg - Anesthesia consult for epidural PRN pain
--- NOTE | 2025-07-17 11:09 | P.PNAN_ITS ---
Anes - Initial Pre Proc Eval Procedure: labor epidural Date/Time: 07/17/25 11:09 Surgeon: Brynn Goodwin MD Pre Op Diagnosis: labor pain Pre Op Diagnosis: IOL Patient Data Age: 29 Gender: F Height: 1.57 m Weight: 81 kg Last Vital Signs Temp 36.6 C 07/17/25 06:15 Pulse 65 07/17/25 11:01 BP 109/64 07/17/25 11:01 Pulse Ox 98 07/17/25 11:06 O2 Del Method Room Air 07/17/25 07:30 Allergies Allergy/AdvReac Type Severity Reaction Status Date / Time No Known Allergies Allergy Verified 07/16/25 22:11 Home Medications ?Medication ?Instructions ?Recorded ?Confirmed ?Type docosahexaenoic acid 200 mg mg PO 12/09/24 07/15/25 Hi story capsule ( DHA) RSV vac, preF A and preF B(PF) 120 0.5 ml IM ONCE #1 e a 06/01/25 07/15/25 Rx mcg/0.5 mL IM solution (Abrysvo (PF)) famotidine 20 mg tablet 20 mg PO DAILY 07/01/2507/03 History ferrous sulfate 325 mg (65 mg 325 mg PO DAILY 07/01/25 07/17/25 History iron) tablet Laboratory Tests 07/16/25 20:51 WBC 6.3 K/mm3 (4.5-10.0) RBC 3.63 L M/mm3 (4.2-5.4) Hgb 10.3 L g/dL (12.0-15.0) Hct 31.5 L % (37.0-47.0) MCV 86.8 fl (80-100) MCH 28.4 pg (26-34) MCHC 32.7 g/dl (32-36) RDW 13.5 % (11.5-14.5) Plt Count 202 k/mm3 (150-375) MPV 11.3 H fl (7.4-10.4) Immature Gran % (Auto) 0.2 % (0-0.5) Neut % (Auto) 56.9 % (45.5-73.1) Lymph % (Auto) 34.4 % (18.3-44.2) [place] % (Auto) 7.4 % (2.6-8.5) Eos % (Auto) 0.8 % (0-4.4) Baso % (Auto) 0.3 % (0.2-1.2) Lymph # (Auto) 2.18 K/mm3 (0.9-3.2) [place] # (Auto) 0.5 K/mm3 (0.1-0.6) Eos # (Auto) 0.1 K/mm3 (0-0.3) Baso # (Auto) 0.0 K/mm3 (0.0-0.1) Abs Immat Gran (auto) 0.01 K/mm3 (0.00-0.031) Absolute Neuts (auto) 3.6 K/mm3 (1.3-6.7) Absolute Nucleated RBC 0.000 K/mm3 (0.0-0.012) Nucleated RBC % 0.0 % (0.0-0.2) Syphilis IgG/IgM Ab Non-reactive (Nonreactive) Blood Type O Positive Antibody Screen Negative Patient hx anesthesia problems: none Family hx anesthesia problems: none Results Review: All pre-operative results and documents have been reviewed as part of the pre- operative evaluation. [facility] Past Medical History Medical History Abnormal glucose tolerance in Heart palpitations Encounter for IUD removal 2011 Encounter for insertion of mirena IUD 2010 Normal vaginal delivery Late deceleration of heart rate Vaginal discharge during Surgical History Surgical History History of tonsillectomy Family History Family History Father Hypertension Family history of malignant neoplasm of urinary bladder Mother Family history of malignant melanoma Family history of malignant neoplasm of breast in first degree relative Social History Social History Social History: Single Years smoked: 2 Smoking status: Never smoker Tobacco type: e-cigarettes/vaping Second hand tobacco smoke exposure: No Alcohol intake: former Alcohol use details: Twice a month Substance use: never Substance use type: does not use Lack of Transportation: No Lack of Food: Never True Current Housing: I Have Housing Concerned About Future Housing: No Difficulty Paying Gas/Electric Bills: No Difficulty Paying for Meds: No Currently Unemployed: No Education: Associate Degree Difficulty w/ Childcare or Family Care: No Living arrangements: with family Additional living arrangements comments: fianc? 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 [employer] Gender identity (if verbalized by the patient): Female Sexual Orientation (if Verbalized by the Patient): Straight or Heterosexual Spiritual care concerns: No Anes - Eval Final PreProcedure Day of Procedure 07/17/25 11:09 Patient weight: obese Heart: regular rate and rhythm Lungs: clear to auscultation Airway: Mallampati scale class II Neurological: alert and oriented Last oral intake: >/= 8 hours ASA classification: II Emergent: no Anesthetic plan: proceed Anesthesia type and monitoring: general GIVS and standard monitoring Results Review: All pre-operative results and documents have been reviewed as part of the pre- operative evaluation. Informed Consent: The patient's anesthetic plan and its attendant risks and benefits were discussed with the patient/family/POA. Questions were solicited and answers provided to the satisfaction of the patient/family/POA.
--- NOTE | 2025-07-17 13:01 | PM.OBPNLAB ---
Pain Control Date/time seen: 07/17/25 13:01 Pain control: epidural Pelvic Exam Dilation (cm): 4 (.5) Effacement (%): 70 station: -3 Amniotic membrane status: Ruptured Contractions Monitor mode: Internal Contraction frequency: 2 Contraction pattern: Regular Status status: Category l Assessment and Plan Pitocin rate (mU/min): 12 Assessment: induction ongoing Plan: continuous present management Comments: - IUPC placed on this exam - continue increasing pitocin per protocol
[2025-07-17] MEDS: FAMOTIDINE 20 MG/2 ML VIAL IV PUSH (15:44)
--- NOTE | 2025-07-17 20:20 | PM.OBPRVD ---
OB - Vaginal Delivery Note Procedure Delivery date: 07/17/25 Events: Elective Induction of Labor Induction method: Per Cervidil Protocol Delivery augmentation: Rupture of Membranes and Pitocin Delivery monitor: External FHT and Internal Uterine Route of delivery: Episiotomy description: None Laceration Description: Labial (left) Delivery repair: vicryl Specimen: No Quantitative Blood Loss (ml): 300 Anesthesia type: Epidural Disposition: Floor Complications: No immediate complications Baby Date of : 07/17/25 Time of : 19:56 Gestational Age by Date: 39 (.1) Infant gender: Female Weight (pounds): 7 Weight (ounces): 8 presentation: vertex position: Left Occiput Anterior Placenta delivery description: Expressed Cord Vessel Description: 3 Vessels and Delayed Cord Clamping score one minute: 8 score five minutes: 9 Narrative: Ruthy progressed to complete dilation with strong desire to push. She pushed for approximately 5 minutes with good maternal effort. She delivered the head over intact perineum. No nuchal cords palpated. She easily delivered the 's shoulders and body without complication. The was immediately placed skin to skin had spontaneous cry. Delayed cord clamping was performed. The umbilical cord was then doubly clamped and cut by dad. A segment of the cord was collected for cord gases. The remaining cord blood was collected for typing. With Pitocin running and gentle downward traction on the cord, the placenta delivered without complication. Bimanual massage was performed and good uterine tone and minimal bleeding was noted. She was examined and a small left labial laceration was identified. The laceration was repaired using 3-0 Vicryl in a running fashion and good reapproximation was noted. Sponge, lap, instrument, and needle counts were correct at the end of the procedure. Mom and baby were left bonding in the birthing suite in stable condition.
[2025-07-17] MEDS: OXYTOCIN 30 UNITS/NS 500 ML 30 UNITS/500 ML BAG 125 UNITS IV CONT (20:29)
[2025-07-17] MEDS: IBUPROFEN 600 MG TABLET PO (21:41)
[2025-07-17] MEDS: ACETAMINOPHEN 325 MG TABLET 650 MG PO (22:38)
[2025-07-18 00:45] VITALS: BP 102/63; PULSE 66; RESP 16; TEMP 36.9; O2SAT 96
--- NOTE | 2025-07-18 01:29 | PM.OBPNVD ---
OB - PN: Subj Subjective Date/time seen: 07/18/25 08:42 Narrative: PPD#1 Ruthy reports doing well today. 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 Her pain is controlled. She is tolerating regular diet, voiding, passing gas, and ambulating without issues. She is breast feeding. She is maybe wanting to go home this evening at 24 hours post . OB - PN: Obj Data Labs 07/18/25 04:38 Labs: Laboratory Results - last 24 hr 07/16/25 20:51 WBC 6.3 RBC 3.63 L Hgb 10.3 L Hct 31.5 L MCV 86.8 MCH 28.4 MCHC 32.7 RDW 13.5 Plt Count 202 MPV 11.3 H Immature Gran % (Auto) 0.2 Neut % (Auto) 56.9 Lymph % (Auto) 34.4 Sanders % (Auto) 7.4 Eos % (Auto) 0.8 Baso % (Auto) 0.3 Lymph # (Auto) 2.18 Sanders # (Auto) 0.5 Eos # (Auto) 0.1 Baso # (Auto) 0.0 Abs Immat Gran (auto) 0.01 Absolute Neuts (auto) 3.6 Absolute Nucleated RBC 0.000 Nucleated RBC % 0.0 Syphilis IgG/IgM Ab Non-reactive Blood Type O Positive Antibody Screen Negative OB - PN A/P Plan day: 1 Plan: routine care Comments: - PO pain meds - Regular diet - Ambulation and hydration encouraged - Continue putting baby to breast q2-3hr - Pelvic rest; take meds as prescribed - ER return precautions: fever, n/v/abd pain, bleeding, HTN Time Spent With Patient Time: Total time spent is greater than 50% in coordination of care (as documented) at patient's floor/unit and/or counseling patient: Review of Systems Constitutional: Constitutional: Denies chills, Denies fever(s) and Denies headache(s) Eyes: Eyes: Denies change in vision ENT: Denies dizziness and Denies headache(s) Cardiovascular: Cardiovascular: Denies chest pain, Denies palpitations and Denies dyspnea Respiratory: Respiratory: Denies cough and Denies dyspnea Gastrointestinal: Gastrointestinal: Denies nausea and Denies vomiting Neurologic: Denies dizziness and Denies headache(s) Endocrine: Endocrine: Denies palpitations Exam Const: General: cooperative, comfortable and no acute distress Orientation/consciousness: patient oriented x3 Resp: Effort & Inspection: normal respiratory effort Auscultation: clear to auscultation bilaterally Cardio: Rate: regular rate GI: Inspection: non-distended GI Palp: No abdominal tenderness and Yes Soft to palpation Auscultation: normal bowel sounds : Other: fundus firm Skin: General skin exam: normal color Neuro: General: patient oriented x3 Extrem: General: normal to inspection Psych: Appearance: grossly normal Affect: normal affect Attitude: cooperative
--- NOTE | 2025-07-18 01:30 | OBPPTRN ---
Addendum entered by Ayala Grullon RN 07/18/25 01:38: This note should read 07/17/25 at 2215 Patient transferred to post room #286. Support person present. Patient and her significant other oriented to unit, room, information board, rooming in, admission packet and security measures. Patient verbalizes understanding. Original Note: 07/18/25 at 2215 Patient transferred to post room #286. Support person present. Patient and her significant other oriented to unit, room, information board, rooming in, admission packet and security measures. Patient verbalizes understanding.
[2025-07-18] MEDS: ACETAMINOPHEN 325 MG TABLET 650 MG PO ×3 (04:33→17:09)
[2025-07-18] MEDS: IBUPROFEN 600 MG TABLET PO ×3 (04:34→17:09)
[2025-07-18 05:05] LABS: Hematocrit 33.5 % (37.0-47.0); Hemoglobin 11.2 g/dL (12.0-15.0); Mean Corpuscular HGB Conc 33.4 g/dl (32-36); Mean Corpuscular Hemoglobin 29.2 pg (26-34); Mean Corpuscular Volume 87.2 fl (80-100); Platelet Count Result 179 k/mm3 (150-375); Red Blood Count 3.84 M/mm3 (4.2-5.4); White Blood Count 13.4 K/mm3 (4.5-10.0)
[2025-07-18 07:55] VITALS: BP 109/69; PULSE 61; RESP 16; TEMP 36.7; O2SAT 98
[2025-07-18] MEDS: DOCUSATE SODIUM 100 MG CAPSULE PO (09:19)
[2025-07-18] MEDS: FAMOTIDINE 20 MG TABLET PO (09:19)
[2025-07-18] MEDS: MULTIVIT/MIN/PREN/FOL AC/IRON TABLET 1 TAB PO (09:19)
--- NOTE | 2025-07-18 09:20 | PC.NURSE ---
Breast pump provided due to maternal request. Instructions given on cleaning, care, usage, that there should be no pain, pumping schedule for milk production, collection, and storage of human milk. Patient was assessed for correct placement, flange size, to pump for comfort and nipple stretching/stimulation for adequate milk production every 3 hours (8 times in 24 hours) 1-2 times at night. Mother voiced understanding of the education shared.
--- NOTE | 2025-07-18 11:04 | WPDANLDPN2 ---
Anes-Prog Note L&D Date/Time: 07/18/25 11:04 Comfortable throughout: labor and delivery Neuraxial method: epidural Epidural/Spinal procedure site: clean & non-tender Neuro status: Neuro function grossly intact. Cardiovascular status: normal Respiratory status: normal Airway patency: baseline Mental status: baseline Post-Op hydration status: normal Vital Signs: Last Vital Signs Temp 98.4 F 07/18/25 00:45 Pulse 66 07/18/25 00:45 Resp 16 07/18/25 00:45 BP 102/63 07/18/25 00:45 Pulse Ox 96 07/18/25 00:45 O2 Del Method Room Air 07/17/25 07:30 Pain score (VAS): 0 I/O: Intake & Output 07/17/25 07/18/25 07/18/25 23:59 07:59 15:59 Intake Total 1000 Output Total 300 Balance 700 Post-procedural complaints: none Patient feedback: Patient satisfied with anesthetic care.
[2025-07-18 11:05] VITALS: BP 111/68; PULSE 73; RESP 16; TEMP 36.7; O2SAT 98
[2025-07-18 20:02] VITALS: BP 105/66; PULSE 67; RESP 16; TEMP 36.6; O2SAT 98
[2025-07-19] MEDS: ACETAMINOPHEN 325 MG TABLET 650 MG PO ×2 (03:20→09:52)
[2025-07-19] MEDS: IBUPROFEN 600 MG TABLET PO ×2 (03:20→09:51)
--- NOTE | 2025-07-19 07:16 | P.DS_ITS ---
DS: Admitting Diagnosis Discharge Date 07/19/25 Admitting Diagnosis elective induction of labor DS: Discharge Diagnosis Discharge Diagnosis (1) Normal vaginal delivery: Code(s): O80 - Encounter for full-term uncomplicated delivery Status: Acute OB - DS: Summary OB Procedures : Ultrasound OB Procedures Intrapartum: Spontaneous Vag Delivery OB Procedures: : None Peripartum Data Delivery Method: Natural Vaginal Laceration Description: Labial (left) Episiotomy description: None complications: none 1: Gender: Female Disposition of : home Status at Discharge Functional status at discharge: independent ambulation Overall status at discharge: patient is back to baseline Time Spent with Patient Time attestation: Total time spent providing and/or coordinating discharge services: Time spent: Less than 30 minutes Exam Const: General: cooperative, comfortable, no acute distress and obese Orientation/consciousness: patient oriented x3 Resp: Effort & Inspection: normal respiratory effort Auscultation: clear to auscultation bilaterally Cardio: Rate: regular rate GI: Inspection: non-distended GI Palp: No abdominal tenderness and Yes Soft to palpation Auscultation: normal bowel sounds : Other: fundus firm Skin: General skin exam: normal color Neuro: General: patient oriented x3 Extrem: General: normal to inspection Psych: Appearance: grossly normal Affect: normal affect Attitude: cooperative DS: Data Data Completed and Pending Labs on day of discharge: Labs from last 24 hours 07/18/25 04:38 WBC 13.4 H RBC 3.84 L Hgb 11.2 L Hct 33.5 L MCV 87.2 MCH 29.2 MCHC 33.4 RDW 13.7 Plt Count 179 MPV 11.5 H Discharge Plan Discharge Attending physician on discharge: Brynn Goodwin Discharging Clinician: Brynn Goodwin Anticipated Discharge Date/Time: 07/19/25 08:00 Patient Disposition: Home Activity: may shower and pelvic rest Diet: regular Patient Instructions: Antibiotic Form Patient Language: Setswana Stand Alone Forms: General Discharge Information Follow-up/Referrals: Brynn Goodwin MD [Physician, PLANNING AND ANALYSIS MANAGER] - 4 Weeks Discharge Medications: New acetaminophen 325 mg Tablet 650 mg PO Q6H PRN (Reason: Mild Pain (1-3) Or Headache) Qty: 60 0RF docusate sodium 100 mg Capsule 100 mg PO BID PRN (Reason: Constipation) Qty: 90 0RF ibuprofen 600 mg Tablet 600 mg PO Q6H PRN (Reason: Cramping) Qty: 40 0RF Continued DHA 200 mg capsule PO famotidine 20 mg tablet 20 mg PO DAILY ferrous sulfate 325 mg (65 mg iron) tablet 325 mg PO DAILY Discontinued Abrysvo (PF) 120 mcg/0.5 mL recon soln 0.5 ml IM ONCE Qty: 1 0RF Rx Instructions: as a single dose ALL 07/23/25 Date of admission: 07/16/25 20:37 Primary Care Provider: Clint Leija Admitting Provider: Brynn Goodwin Attending physician on admission: Brynn Goodwin Condition: Stable
[2025-07-19 07:45] VITALS: BP 107/66; PULSE 60; RESP 16; O2SAT 98
--- NOTE | 2025-07-19 09:50 | PC.NURSE ---
Consulted with mother concerning needs and she shared her ability to independently use her breast pump without pain, she has chosen to only pump and bottle feed at this time. Per mother she only pumped for a short time after her first baby, she felt like she wasn't consistent enough with pumping that her supply was low, so we discussed improving on how often she is pumping to protect her milk supply. Mother is feeding appropriately for growth of and understands stimulating to eat if needed. has had appropriate feedings in the last 24 hours meets the outcomes for weight, output, blood sugar and jaundice at this time. Reinforced understanding of milk production, transition of milk, signs of adequate intake, transition of stool, prevention/relief of engorgement, plugged ducts, mastitis, responsive feeding, watching for feeding cues, the different methods of stimulating to breastfeed or bottle feed, community resources, and when to call a provider using the resource of the feeding sheet along with the mom and baby guide. Mother voiced understanding of the information shared, is confident to continue effectively feed her at home, when to call for assistance, denies any additional assistance or education at this time. [facility] Referral faxed to the [place] office ([phone]) Reported to the Primary RN.
[2025-07-19] MEDS: FAMOTIDINE 20 MG TABLET PO (09:51)
[2025-07-19] MEDS: MULTIVIT/MIN/PREN/FOL AC/IRON TABLET 1 TAB PO (09:51)
[2025-07-19] MEDS: INFLUENZA VACCINE 45 MCG/0.5 ML SYRINGE IM (11:58)
[2025-07-20 08:33] VITALS: BP 120/76; PULSE 65; RESP 18; TEMP 36.3; O2SAT 98
== END 2025-07-19 12:50 | disposition home or self-care (01) | DRG 807 ==
LOC: ANHLDR 07-17 20:42 → ANHOB2 07-17 22:18
PROVIDERS: Admitting Provider Obstetrics & Gynecology; PCP Family Medicine; Visit Provider Obstetrics & Gynecology
DX: O70.0 First degree perineal laceration during delivery (principal); Z37.0 Single live birth; Z3A.39 39 weeks gestation of pregnancy; Z23 Encounter for immunization
CPT/HCPCS: 36415; 85025; 85027; 86593; 86850; 86900; 86901; 90471; 90656; A9270; G0008; J2405; J2590; J2795; J3010; J7120